=== PATIENT | female | born 1965 | race Caucasian/White ===

== ENCOUNTER 2020-09-10 08:46 | Outpatient (REF) | payer OTHER, SELFPAY ==
--- NOTE | 2020-09-10 08:48 | MR_ITS ---
EXAMINATION: MR LUMBAR SPINE WITHOUT CONTRAST CLINICAL INFORMATION: Radiculopathy. COMPARISON: Lumbar spine radiographs from 03/09/2017. CT chest from 08/27/2011. TECHNIQUE: MRI of the lumbar spine was obtained using routine sequences without contrast. FINDINGS: Otherwise, normal anatomic alignment. Mild right convex curvature of the lumbar spine. Mild degenerative grade 1 anterolisthesis of L3 on L4. Changes of prior right-sided L4-L5 hemilaminectomy. Advanced degenerative disc disease at L5-S1. Moderate degenerative disc disease at L3-L4. Mild degenerative disc disease at all additional lumbar levels. Associated mixed Modic discogenic endplate changes including mild Modic type I discogenic edema from L2-L5. Mild marrow edema within the posterior elements of L3 and L4 suggestive of degenerative stress reaction. No additional suspicious marrow edema. The vertebral body heights are largely maintained. The conus medullaris terminates at the level of L1. The distal spinal cord is normal in appearance. Postsurgical soft tissue changes of the lower back with moderate subcutaneous edema from L2-L5. No discrete fluid collection. No significant abnormalities of the paraspinal musculature. There is a 1.7 cm nodule associated with the left adrenal gland. There is a 0.8 cm T2 hyperintense cyst in the left kidney. Otherwise, limited evaluation of the intra-abdominal structures without significant abnormalities. The abdominal aorta is of normal contour and caliber. AXIAL SPINAL LEVELS: T12-L1: Shallow diffuse disc bulge. There is mild bilateral facet joint arthropathy. There is no neural foraminal stenosis. There is no spinal canal stenosis. L1-L2: Shallow diffuse disc bulge. There is mild to moderate bilateral facet joint arthropathy. There is no neural foraminal stenosis. There is no spinal canal stenosis. L2-L3: Shallow diffuse disc bulge with superimposed mild right foraminal protrusion. There is moderate bilateral facet joint arthropathy. There is mild right and no left neural foraminal stenosis. There is no spinal canal stenosis. L3-L4: Moderate diffuse disc bulge exacerbated by uncovering from anterolisthesis. There is severe bilateral facet joint arthropathy. There is severe left and moderate right neural foraminal stenosis. There is moderate to severe spinal canal stenosis. L4-L5: Moderate diffuse disc bulge with posterior osseous ridging. There is moderate bilateral facet joint arthropathy. Changes of right-sided hemilaminectomy. There is moderate to severe bilateral neural foraminal stenosis. There is stenosis of the subarticular zones with no overt spinal canal stenosis centrally. L5-S1: Mild diffuse disc bulge eccentric to the right. There is moderate bilateral facet joint arthropathy. There is moderate to severe right and moderate left neural foraminal stenosis. There is no spinal canal stenosis. MR/MR lumbar spine wo con IMPRESSION: Moderate multilevel degenerative spondyloarthropathy of the cervical spine as described in detail above. Changes of right L4-L5 hemilaminectomy. Most notably, there is moderate to severe spinal canal stenosis at L3-L4. Stenosis of the subarticular zones at L4-L5. Moderate to severe neural foraminal stenoses from L3-S1.
== END 2020-09-10 08:47 | disposition home or self-care (01) ==
LOC: HO.MRI 08:46
PROVIDERS: PCP Internal Medicine; Visit Provider Physician Assistant
DX: M51.16 Intervertebral disc disorders with radiculopathy, lumbar region (principal)
CPT/HCPCS: 72148

== ENCOUNTER 2022-07-02 15:20 | Outpatient (REF) | payer OTHER, SELFPAY ==
[2022-07-02 15:43] LABS: Binax Internal Control QC Valid; Binax Now Covid-19 Ag Negative (Negative)
== END 2022-07-02 15:21 | disposition home or self-care (01) ==
LOC: HO.HMGCLDS 15:20
PROVIDERS: PCP Internal Medicine; Visit Provider Emergency Medicine
DX: Z20.822 Contact with and (suspected) exposure to COVID-19 (principal); J06.9 Acute upper respiratory infection, unspecified
CPT/HCPCS: 87811; C9803

== ENCOUNTER 2022-07-03 16:26 | Outpatient (REF) | payer OTHER, SELFPAY ==
--- NOTE | ~2022-07-03 | XR_ITS ---
EXAMINATION: XR CHEST CLINICAL INFORMATION: Cough COMPARISON: None TECHNIQUE: 2 views of the chest were obtained. FINDINGS: No significant abnormality is noted involving the heart, lungs, mediastinum, bony thorax or soft tissues. XR/XR chest 2V IMPRESSION: Unremarkable chest examination.
[2022-07-03 18:40] LABS: Influenza A PCR NEGATIVE (Negative); Influenza B PCR NEGATIVE (Negative); Resp Syncy Virus RNA Qual PCR NEGATIVE (Negative); SARS COV2 PCR INHOUSE NEGATIVE (Negative)
== END 2022-07-03 16:27 | disposition home or self-care (01) ==
LOC: HO.HMGCX 16:26
PROVIDERS: PCP Internal Medicine; Visit Provider Physician Assistant Medical
DX: R05.9 Cough, unspecified (principal); Z20.822 Contact with and (suspected) exposure to COVID-19
CPT/HCPCS: 0241U; 71046

== ENCOUNTER 2022-07-03 17:53 | Emergency (ER) | payer OTHER, SELFPAY ==
--- NOTE | ~2022-07-03 | XR_ITS ---
EXAMINATION: XR CHEST CLINICAL INFORMATION: Short of breath. Cough. COMPARISON: 07/03/2022 TECHNIQUE: 2 views of the chest were obtained. FINDINGS: The lungs are well expanded. There is no focal consolidation, edema, or effusion. No pneumothorax. The cardiomediastinal silhouette is within normal limits. No acute osseous abnormality. XR/XR chest 2V IMPRESSION: Clear lungs.
[2022-07-03 19:13] VITALS: BP 166/89; PULSE 85; RESP 22; TEMP 36.6; O2SAT 95; BMI 32.0
[2022-07-03 19:51] LABS: COVID-19 Test Negative (Negative)
[2022-07-03 20:38] LABS: MANUAL DIFF FLAG NO
[2022-07-03 20:42] LABS: Basophils Absolute Auto 0.1 X10*3/uL (0.0-0.2); Basophils Percent Auto 0.5 % (0-2); Eosinophils Absolute Auto 0.1 X10*3/uL (0.0-0.4); Eosinophils Percent Auto 0.7 % (0-4); Hematocrit 49.8 % (37.0-47.0); Hemoglobin 16.9 g/dl (12.0-16.0); Imm Gran Abs Auto 0.13 X10*3/uL (0.00-0.03); Imm Gran Pct Auto 1.1 % (0.0-0.4); Lymphocytes Percent Auto 32.4 % (20-40); Mean Corpuscular HGB Conc 33.9 g/dl (31.0-35.0); Mean Corpuscular Hemoglobin 32.7 pg (27.0-33.0); Mean Corpuscular Volume 96.3 fL (80.0-98.0); Mean Platelet Volume 8.9 fL (9.4-12.3); Monocytes Percent Auto 7.7 % (2-11); Neutrophils Absolute Auto 7.1 x10*3/uL (2.0-8.3); Neutrophils Percent Auto 57.6 % (45-73); Platelet Count 366 X10*3/uL (160-400); Red Blood Count 5.17 X10*6/uL (4.20-5.50); Red Cell Distribution Width 13.9 % (11.0-16.0); White Blood Count 12.3 X10*3/uL (4.8-10.8)
[2022-07-03 20:57] LABS: Alanine Aminotransferase 10 U/L (0-31); Albumin Level 4.1 g/dL (3.5-5.0); Alkaline Phosphatase 110 U/L (39-117); Anion Gap 17 (12-20); Aspartate Amino Transferase 12 U/L (5-31); Bilirubin Total 0.7 mg/dL (0.0-1.0); Blood Urea Nitrogen 11 mg/dL (9-16); Calcium 9.8 mg/dL (8.4-10.2); Carbon Dioxide 28 mmol/L (22-29); Chloride 104 mmol/L (96-108); Creatinine Clr Calc Pharmacy 84.2; Estimated Glomerular Filt Rate > 60; Glucose Random 142 mg/dL (60-115); Potassium 4.5 mmol/L (3.3-5.1); Sodium 144 mmol/L (135-145); Total Protein 7.6 g/dL (6.5-8.0)
[2022-07-03 21:02] LABS: Troponin-I High Sensitivity 5.3 ng/L (<3.5-17.0)
--- NOTE | 2022-07-03 21:31 | ED_ITS ---
HPI - URI/Sore Throat General Chief Complaint: Upper Respiratory Symptoms Stated Complaint: not feeling well sent from doctors Time Seen by Provider: 07/03/22 21:30 Source: patient Mode of arrival: ambulatory Limitations: no limitations History of Present Illness HPI Narrative: 56-year-old female came in for evaluation of upper respiratory symptoms. Patient with history of COPD and in the process of quitting smoking came in for increases shortness of breath with dry coughing, sneezing, generalized body ache, subjective fever. Patient was seen and evaluated at an urgent care last week because of no improvement of her symptoms patient return to the urgent care who referred her to the emergency department for further evaluation. While the patient in emergency room stable vital signs with stable O2 sat. Patient tested negative for COVID and declined any recent exposure to a sick contact, no recent travel. Related Data Home Medications Medication Instructions Recorded Confirmed albuterol sulfate 90 mcg/actuation 2 puff inhalation Q4H PRN 07/25/20 07/03/22 aerosol inhaler (ProAir HFA) Previous Rx's Medication Instructions Recorded ibuprofen 800 mg tablet 800 mg PO Q8H 30 days #90 tabs 09/12/20 albuterol sulfate 90 mcg/actuation 1 inh inhalation Q4-6H PRN 07/03/22 breath activated powder inhaler shortness of breath or wheezing #1 ea azithromycin 250 mg tablet See Rx Instructions PO .COMPLEX #6 07/03/22 (Zithromax Z-Mehrdad) tabs prednisone 20 mg tablet 20 mg PO BID #10 tabs 07/03/22 Allergies Allergy/AdvReac Type Severity Reaction Status Date / Time No Known Allergies Allergy Verified 07/03/22 16:09 [No Known Allergies*] Review of Systems Review of Systems: All other systems are reviewed and are negative Constitutional: Reports as per HPI and Reports no additional constitutional complaints Eyes: Reports as per HPI and Reports no additional eye complaints Reports system reviewed and no additional complaints, except as documented Cardiovascular: Reports as per HPI and Reports no additional cardiovascular complaints Respiratory: Reports as per HPI and Reports no additional respiratory complaints Gastrointestinal: Reports as per HPI and Reports no additional gastrointestinal complaints Genitourinary: Reports no additional female genitourinary complaints Musculoskeletal: Reports no additional musculoskeletal complaints Skin/Breast: Reports system reviewed and no additional complaints, except as docu Psychiatric: Reports no additional psychiatric complaints Endocrine: Reports no additional endocrine complaints Hematologic/Lymphatic: Reports no additional hematologic/lymphatic complaints Allergic/Immunologic: Reports no additional allergic/immunologic complaints Reports system reviewed and no additional complaints, except as documented and Reports Abnormal speech present [facility] Past Medical History Surgical History History of appendectomy History of back surgery Ventral hernia Family History Family History Father CVA (cerebral vascular accident) Diabetes mellitus Hypertension Mother Diabetes mellitus Hypertension CVD (cardiovascular disease) Myocardial infarction Brother Skin cancer Social History Social History Patient Tobacco Use Status: Current everyday Tobacco user Advance Directives: No Advance Directives Information Provided: No Physical Exam Vital Signs: Vital Signs: Last Vital Signs Temp 97.8 F 07/03/22 19:13 Pulse 85 07/03/22 19:13 Resp 22 H 07/03/22 19:13 BP 166/89 H 07/03/22 19:13 Pulse Ox 95 07/03/22 19:13 O2 Del Method 07/03/22 19:13 BMI result Body Mass Index 32.0 Vital signs have been reviewed as appeared to be correct. Blood pressure normal. Heart rate normal. Respiration rate normal. Temperature normal. Oxygen saturation normal. Appearance: Alert. Oriented X3. No acute distress. Head: Normal external exam. Normocephalic. Atraumatic. No Pradhan signs noted. No raccoon eyes noted Eyes: PERRLA. EOMI. Conjunctiva and sclera normal. Eyelids normal. ENT: TM's Normal. Pharynx normal. Uvula midline. Moist mucous membranes. No trismus noted. No drooling noted. No muffled voice noted. Neck: Normal inspection. Neck supple. FROM. No adenopathy. Thyroid Normal. No meningeal signs. No neck mass noted. CVS: Normal heart rate and rhythm. Heart sound normal. No murmurs noted. Pulses normal throughout. Respiratory: No respiratory distress. Painless inspiration. Breath sounds normal. Diffuse mild expiratory wheezing with prolonged expiration. Chest nontender. No accessory muscle usage noted or decreased air movement noted. Abdomen: Soft and nontender. Bowel sounds normal in all 4 quadrants. No distention noted. No organomegaly noted. No visible injury noted. Back: No CVA tenderness. Full range of motion noted. Skin: Skin warm and dry. Normal skin color. Normal skin turgor. No ra shes/lesions/lacerations noted. Extremities: No lower extremity edema. Extremities exhibit normal range of motion. Extremities nontender. Neuro: Oriented X 3. Cranial nerve exam: II-XII are grossly intact No motor deficit. No sensory deficit. Reflexes normal. Course Course Course Narrative: 56-year-old female with long history of smoking and COPD patient had viral symptoms 5 days patient was evaluated at an urgent care who sent her here today, patient is not hypoxic, mild expiratory wheezing, stable labs and vital signs, chest x-ray is unremarkable for acute infection and patient tested negative for COVID. Will start the patient on Z-Mehrdad/prednisone/bronchodilator. Patient was instructed to follow up with [facility] as an outpatient. MDM - URI/Sore Throat Lab Data Attestation: I reviewed the patient's lab results. Result diagrams: 07/03/22 20:34 07/03/22 20:34 Labs: Lab Results 07/03/22 07/03/22 07/03/22 Range/Units 19:21 20:34 20:34 WBC 12.3 H (4.8-10.8) X10*3/uL RBC 5.17 (4.20-5.50) X10*6/uL Hgb 16.9 H (12.0-16.0) g/dl Hct 49.8 H (37.0-47.0) % MCV 96.3 (80.0-98.0) fL MCH 32.7 (27.0-33.0) pg MCHC 33.9 (31.0-35.0) g/dl RDW 13.9 (11.0-16.0) % Plt Count 366 (160-400) X10*3/uL MPV 8.9 L (9.4-12.3) fL Immature Gran % (Auto) 1.1 H (0.0-0.4) % Neut % (Auto) 57.6 (45-73) % Lymph % (Auto) 32.4 (20-40) % [place] % (Auto) 7.7 (2-11) % Eos % (Auto) 0.7 (0-4) % Baso % (Auto) 0.5 (0-2) % Lymph # (Auto) 4.0 (1.2-4.9) X10*3/uL [place] # (Auto) 1.0 (0.1-1.2) X10*3/uL Eos # (Auto) 0.1 (0.0-0.4) X10*3/uL Baso # (Auto) 0.1 (0.0-0.2) X10*3/uL Abs Immat Gran (auto) 0.13 H (0.00-0.03) X10*3/uL Absolute Neuts (auto) 7.1 (2.0-8.3) x10*3/uL Absolute Nucleated RBC 0.000 (0.0-0.012) X10*3/uL Nucleated RBC % (auto) 0.0 (0.0-0.2) /100WBC Sodium 144 (135-145) mmol/L Potassium 4.5 (3.3-5.1) mmol/L Chloride 104 (96-108) mmol/L Carbon Dioxide 28 (22-29) mmol/L Anion Gap 17 (12-20) BUN 11 (9-16) mg/dL Creatinine 0.71 (0.5-1.4) mg/dL Estim Creat Clear Calc 84.2 Estimated GFR > 60 Random Glucose 142 H (60-115) mg/dL Calcium 9.8 (8.4-10.2) mg/dL Total Bilirubin 0.7 (0.0-1.0) mg/dL AST 12 (5-31) U/L ALT 10 (0-31) U/L Alkaline Phosphatase 110 (39-117) U/L Troponin I High Sens (<3.5-17.0) ng/L Total Protein 7.6 (6.5-8.0) g/dL Albumin 4.1 (3.5-5.0) g/dL COVID-19 (SHERYL) Negative (Negative) COVID-19 Clin Com See Note 07/03/22 Range/Units 20:34 WBC (4.8-10.8) X10*3/uL RBC (4.20-5.50) X10*6/uL Hgb (12.0-16.0) g/dl Hct (37.0-47.0) % MCV (80.0-98.0) fL MCH (27.0-33.0) pg MCHC (31.0-35.0) g/dl RDW (11.0-16.0) % Plt Count (160-400) X10*3/uL MPV (9.4-12.3) fL Immature Gran % (Auto) (0.0-0.4) % Neut % (Auto) (45-73) % Lymph % (Auto) (20-40) % [place] % (Auto) (2-11) % Eos % (Auto) (0-4) % Baso % (Auto) (0-2) % Lymph # (Auto) (1.2-4.9) X10*3/uL [place] # (Auto) (0.1-1.2) X10*3/uL Eos # (Auto) (0.0-0.4) X10*3/uL Baso # (Auto) (0.0-0.2) X10*3/uL Abs Immat Gran (auto) (0.00-0.03) X10*3/uL Absolute Neuts (auto) (2.0-8.3) x10*3/uL Absolute Nucleated RBC (0.0-0.012) X10*3/uL Nucleated RBC % (auto) (0.0-0.2) /100WBC Sodium (135-145) mmol/L Potassium (3.3-5.1) mmol/L Chloride (96-108) mmol/L Carbon Dioxide (22-29) mmol/L Anion Gap (12-20) BUN (9-16) mg/dL Creatinine (0.5-1.4) mg/dL Estim Creat Clear Calc Estimated GFR Random Glucose (60-115) mg/dL Calcium (8.4-10.2) mg/dL Total Bilirubin (0.0-1.0) mg/dL AST (5-31) U/L ALT (0-31) U/L Alkaline Phosphatase (39-117) U/L Troponin I High Sens 5.3 (<3.5-17.0) ng/L Total Protein (6.5-8.0) g/dL Albumin (3.5-5.0) g/dL COVID-19 (SHERYL) (Negative) COVID-19 Clin Com Imaging Data Chest x-ray: Attestation: I personally reviewed and interpreted this imaging study as follows: Radiologist's impression: No intrathoracic pathology. Discharge Plan Discharge Clinical Impression: Bronchitis Patient Disposition: Home, Self-Care Instructions: Acute Bronchitis (ED) Prescriptions: New albuterol sulfate 90 mcg/actuation aerosol powdr breath activated 1 inh inhalation Q4-6H PRN (Reason: shortness of breath or wheezing) Qty: 1 0RF azithromycin [Zithromax Z-Mehrdad] 250 mg tablet See Rx Instructions .ROUTE .COMPLEX Qty: 6 0RF Rx Instructions: For 250 mg dose pack: take 500 mg today (day 1), then 250 mg for 4 days (days 2-5) prednisone 20 mg tablet 20 mg PO BID Qty: 10 0RF No Action ibuprofen 800 mg tablet 800 mg PO Q8H 30 Days Qty: 90 1RF albuterol sulfate [ProAir HFA] 90 mcg/actuation HFA aerosol inhaler 2 puff inhalation Q4H PRN Referrals: Po,Joycelyn Del Rio MD [Primary Care Provider] - Raffy Shore MD [Physician] - Stand Alone Forms: Work/School Release
[2022-07-03] MEDS: Azithromycin 500 MG TABLET PO (22:24)
[2022-07-03] MEDS: predniSONE 20 MG TABLET 40 MG PO (22:24)
== END 2022-07-03 22:29 | disposition home or self-care (01) ==
PROVIDERS: Emergency Provider Emergency Medicine; PCP Internal Medicine
DX: J40 Bronchitis, not specified as acute or chronic (principal); R06.02 Shortness of breath; Z20.822 Contact with and (suspected) exposure to COVID-19; Z79.899 Other long term (current) drug therapy; Z87.891 Personal history of nicotine dependence
CPT/HCPCS: 36415; 71046; 80053; 84484; 85025; 87635; 99282; 99283

== ENCOUNTER 2023-04-20 07:28 | Outpatient (REF) | payer OTHER, SELFPAY ==
--- NOTE | ~2023-04-20 | XR_ITS ---
EXAMINATION: XR HIP, LEFT CLINICAL INFORMATION: Left hip pain COMPARISON: None available. TECHNIQUE: Two views of the left hip. FINDINGS: Mild superior joint space narrowing. No fracture. No suspicious bone lesion. Mild enthesopathy at the greater trochanter. XR/XR hip LT min 2V IMPRESSION: Mild left hip osteoarthritis.
== END 2023-04-20 07:29 | disposition home or self-care (01) ==
LOC: HO.XRAY 07:28
PROVIDERS: PCP Internal Medicine; Visit Provider Internal Medicine
DX: M25.552 Pain in left hip (principal); E78.00 Pure hypercholesterolemia, unspecified; I10 Essential (primary) hypertension; E55.9 Vitamin D deficiency, unspecified
CPT/HCPCS: 36415; 73502; 80053; 80061; 82306; 82607; 82746; 84439; 84443; 85025

== ENCOUNTER 2023-05-29 07:24 | Outpatient (REF) | payer OTHER, SELFPAY | END 2023-05-29 07:25 | disposition home or self-care (01) | LOC: HO.MAMMO 07:24 | PROVIDERS: PCP Internal Medicine; Visit Provider Internal Medicine | DX: Z12.31 Encounter for screening mammogram for malignant neoplasm of breast (principal) | CPT/HCPCS: 77063; 77067 ==

== ENCOUNTER → 2023-05-29 07:30 | Outpatient (BNV) | payer OTHER, SELFPAY | PROVIDERS: PCP Internal Medicine; Visit Provider Radiology Diagnostic Radiology | DX: Z12.31 Encounter for screening mammogram for malignant neoplasm of breast (principal) | CPT/HCPCS: 77063; 77067 ==

== ENCOUNTER 2023-07-24 14:14 | Outpatient (AMB) | payer OTHER, SELFPAY ==
[2023-07-24 14:39] VITALS: BP 148/88; PULSE 85; O2SAT 97; BMI 35.7
--- NOTE | 2023-07-24 14:39 | MHC.PC.OV ---
Vital Signs 07/24/23 14:39 Height 5 ft 2 in Weight 195 lb BMI 35.7 BP 148/88 H Blood Pressure Location Lt brachial Position Sitting Pulse 85 Pulse Source Pulse Oximeter Pulse Oximetry (%) 97 Oxygen Delivery Method Room Air Intake Visit Reasons: hypersomnia, HTN Supervisor Pigment Making: Not Required per policy Accompanied by: Self / Same As Patient Allergies No Known Allergies [No Known Allergies*] Allergy (Verified 07/24/23 14:39) Medication List - Last Reconciled 07/24/23 by Joycelyn Carney MD albuterol sulfate 90 mcg/actuation 1 inh inhalation Q4-6H PRN albuterol sulfate 90 mcg/actuation (ProAir HFA) 2 puffs inhalation Q4H PRN aspirin 325 mg PO BID blood pressure monitor (Blood Pressure Kit) As directed bupropion HCl 200 mg PO BID ibuprofen 800 mg PO Q8H 30 days lisinopril 5 mg PO DAILY Tobacco use date assessed: 01/07/23 Dental Screening Dental Screen Date: 07/24/23 Did you have a dental visit in the last 12 months?: No Did you have a dental problem in the last 6 months where you did not have access to dental care?: No Was dental information given to patient?: Patient has dentist HPI hypersomnia, HTN HPI Details 57-year-old obese female smoker with COPD hypertension hypercholesterolemia GERD generalized anxiety disorder last seen in March 2023. Mammograms up-to-date. Patient has complained of left hip pain x-ray was done showing mild left hip osteoarthritis. [facility] Surgical History History of back surgery Ventral hernia History of appendectomy Family History Father CVA (cerebral vascular accident) Diabetes mellitus Hypertension Mother Diabetes mellitus Hypertension CVD (cardiovascular disease) Myocardial infarction Brother No problems noted. Sister CVD (cardiovascular disease) Skin cancer Social History Housing: House Alcohol intake: former Patient Tobacco Use Status: Current everyday Tobacco user Tobacco use type: Cigarette Cigarettes Per Day: 6 e-Cigarette/Vaping Use: Never Used Second Hand Smoke Exposure: No Current occupational status: employed Cognitive needs: No Hearing needs: No Vision needs: Yes Questionnaire PHQ-9 Over the last 2 weeks, how often have you been bothered by any of the following problems? 1. Little interest or pleasure in doing things: nearly every day 2. Feeling down, depressed, or hopeless: nearly every day 3. Trouble falling or staying asleep, or sleeping too much: more than half the days 4. Feeling tired or having little energy: nearly every day 5. Poor appetite or overeating: not at all 6. Feeling bad about yourself - or that you are a failure or have let yourself or your family down: nearly every day 7. Trouble concentrating on things, such as reading the newspaper or watching television: nearly every day 8. Moving or speaking so slowly that other people could have noticed. Or the opposite - being so fidgety or restless that you have been moving around a lot more than usual: not at all 9. Thoughts that you would be better off or of hurting yourself in some way: not at all Total score: 17 Depression Screening Interpretation: Positive Depression Screening Follow-up: In treatment Depression Screening Done: Yes 98332 - PHQ-9 Billing: Yes Source: Developed by Drs. Tab Hodgson, Nighat Hernandez, Rich Camp and colleagues, with an educational jose from [employer]. Thrive Questionnaire Date Thrive assessed: 01/07/23 AUDIT C Alcohol Use Questionnaire (AUDIT-C) 1. How often do you have a drink containing alcohol?: Never 3. How often do you have six or more drinks on one occasion?: Never Total Score: 0 Score Reviewed/Action Taken: No MARS-7 AMB Questionnaire MARS-7 Date MARS - 7 assessed: 04/15/23 Source: Developed by Drs. Tab Hodgson, Rich Carmona and colleagues, with an educational jose from [employer]. Physical exam (Primary Care) Vital Signs: Last Vital Signs Pulse 85 07/24/23 14:39 BP 148/88 H 07/24/23 14:39 Pulse Ox 97 07/24/23 14:39 Oxygen Delivery Method Room Air 07/24/23 14:39 BMI result Body Mass Index 35.7 Tobacco/Smoking Status: Tobacco use Status Tobacco use date assessed 01/07/23 07/24/23 14:40 Patient Tobacco Use Status Current everyday Tobacco 07/24/23 14:40 Tobacco use type Cigarette 07/24/23 14:40 e-Cigarette/Vaping Use Never Used 07/24/23 14:40 PHQ-9: PHQ-9 Score PHQ-9: Total score 17 07/24/23 15:08 Depression Screening Interpretation: Positive Depression Screening Follow-up: In treatment Thrive Assessment: Date of Thrive Assessment Date Thrive assessed 01/07/23 07/24/23 14:40 Const General: alert; No acute distress Eyes Conjunctivae: conjunctivae normal Resp Auscultation: clear to auscultation bilaterally Cardio Rate: regular rate Rhythm: regular rhythm GI Inspection: Yes normal to inspection Extrem General: Yes normal to inspection and No edema Results AMB Hemoglobin A1c AMB Hemoglobin A1c 6.8 % Last Edit by LIU Tafoya on 07/24/23 15:20 Assessment and Plan Assessment & Plan (1) Elevated blood sugar: Code(s): R73.9 - Hyperglycemia, unspecified Plan: Decrease the amount of carbohydrate intake, pasta, bread, rice and potatoes are all sugar and that is aside from all the sweet stuff, remember that fruits are good but they are Sweet also. (2) Osteoarthritis of left hip: Code(s): M16.12 - Unilateral primary osteoarthritis, left hip Plan: X-ray requested showing osteoarthritis (3) Tobacco abuse: Code(s): Z72.0 - Tobacco use Plan: Strongly advised to stop ! (4) COPD (chronic obstructive pulmonary disease): Code(s): J44.9 - Chronic obstructive pulmonary disease, unspecified Plan: Patient is strongly advised to stop smoking. Continue with the albuterol inhaler as needed (5) Generalized anxiety disorder: Comment: zoom Q 2 week ADCARE Code(s): F41.1 - Generalized anxiety disorder Plan: Continue with therapy and counseling (6) Hypercholesterolemia: Code(s): E78.00 - Pure hypercholesterolemia, unspecified Plan: Avoid fried foods, chicken skin, eggs, butter margarine, pastries and meat. Be it pork or beef they have a lot of cholesterol LDL goal of less than 130 and triglyceride of less than 150 (7) Hypertension: Code(s): I10 - Essential (primary) hypertension Plan: Continue with blood pressure medication. Decrease salt intake and exercise presently on no medication (8) GERD (gastroesophageal reflux disease): Code(s): K21.9 - Gastro-esophageal reflux disease without esophagitis Plan: Avoid the foods that causes that usually spicy foods, tomato products, juices, coffee, soda and foods that your sensitive to. After eating do not lie down, allow 3-4 hours before in lie down. And keep the head of bed above 30 degrees to avoid the acid from going up. (9) Type 2 diabetes mellitus with hyperglycemia: Code(s): E11.65 - Type 2 diabetes mellitus with hyperglycemia Orders: Orders AMB Hemoglobin A1c Today Z13.9 - Encounter for screening, unspecified Lipid Panel 3 Months E78.00 - Pure hypercholesterolemia, unspecified Comprehensive Met. Panel 3 Months E78.00 - Pure hypercholesterolemia, unspecified Hemoglobin A1c 3 Months E78.00 - Pure hypercholesterolemia, unspecified Medications: New lisinopril 5 mg PO DAILY 30 tabs 3RF I10 - Essential (primary) hypertension budesonide-formoterol 160-4.5 mcg/actuation (Symbicort) 2 puffs inhalation BID 10.2 grams 3RF J44.9 - Chronic obstructive pulmonary disease, unspecified metformin 500 mg PO BIDWMEAL 60 tabs 3RF E11.65 - Type 2 diabetes mellitus with hyperglycemia tramadol 50 mg PO DAILY 30 tabs 0RF M16.12 - Unilateral primary osteoarthritis, left hip Changed From bupropion HCl (Wellbutrin SR) 150 mg PO BID 60 tabs 2RF F41.1 - Generalized anxiety disorder To bupropion HCl 200 mg PO BID 60 tabs 3RF F41.1 - Generalized anxiety disorder Refilled albuterol sulfate 90 mcg/actuation 1 inh inhalation Q4-6H PRN 1 ea 0RF shortness of breath or wheezing F41.1 - Generalized anxiety disorder Discontinued ibuprofen Discontinued Reason: Ancillary Entered New Order 800 mg PO Q8H 90 tabs 1RF 30 days M51.16 - Intervertebral disc disorders with radiculopathy, lumbar region Coding Level of Care Code Est Pt Level 4 (53722) Diagnoses Elevated blood sugar R73.9 Osteoarthritis of left hip M16.12 Tobacco abuse Z72.0 COPD (chronic obstructive pulmonary disease) J44.9 Generalized anxiety disorder F41.1 Hypercholesterolemia E78.00 Hypertension I10 GERD (gastroesophageal reflux disease) K21.9 Type 2 diabetes mellitus with hyperglycemia E11.65
== END 2023-07-24 15:35 | disposition home or self-care (01) ==
PROVIDERS: PCP Internal Medicine; Visit Provider Internal Medicine
DX: E11.65 Type 2 diabetes mellitus with hyperglycemia (principal); J44.9 Chronic obstructive pulmonary disease, unspecified; F41.1 Generalized anxiety disorder; M16.12 Unilateral primary osteoarthritis, left hip; Z72.0 Tobacco use; E78.00 Pure hypercholesterolemia, unspecified; I10 Essential (primary) hypertension; K21.9 Gastro-esophageal reflux disease without esophagitis
CPT/HCPCS: 83036; 99214

== ENCOUNTER 2023-10-30 13:11 | Outpatient (AMB) | payer OTHER, SELFPAY ==
[2023-10-30 14:14] VITALS: BP 130/60; PULSE 90; O2SAT 97; BMI 34.7
--- NOTE | 2023-10-30 14:14 | AM.OFFWIN_ITS ---
<Statement entered by Ana Marte NP - 11/05/23 17:41> OPEN IN ERROR Intake Vital Signs 10/30/23 14:14 Height 5 ft 2 in Weight 190 lb BMI 34.7 BP 130/60 Blood Pressure Location Lt brachial Position Sitting Pulse 90 Pulse Source Pulse Oximeter Pulse Oximetry (%) 97 Oxygen Delivery Method Room Air Intake Visit Reasons: EP Cough, nausea, exhaustion [id number] Intake Note: pt is here today for cough nausea exhaustion started 2 weeks ago Patient Tobacco Use Status: Current everyday Tobacco user Allergies No Known Allergies [No Known Allergies*] Allergy (Verified 10/30/23 14:15) Medication List - Last Reconciled 10/30/23 by Ana Marte NP albuterol sulfate 90 mcg/actuation (ProAir HFA) 2 puffs inhalation Q4H PRN albuterol sulfate 90 mcg/actuation 1 inh inhalation Q4-6H PRN aspirin 325 mg PO BID benzonatate 100 mg PO TID blood pressure monitor (Blood Pressure Kit) As directed budesonide-formoterol 160-4.5 mcg/actuation (Symbicort) 2 puffs inhalation BID bupropion HCl 200 mg PO BID lisinopril 5 mg PO DAILY metformin 500 mg PO BIDWMEAL ondansetron 8 mg PO Q8-12H PRN prednisone 50 mg PO DAILY 5 days tramadol 50 mg PO DAILY Do you need a note to return to daycare/school/sports/work: No PFSH Surgical History History of back surgery Ventral hernia History of appendectomy Family History Father CVA (cerebral vascular accident) Diabetes mellitus Hypertension Mother Diabetes mellitus Hypertension CVD (cardiovascular disease) Myocardial infarction Brother No problems noted. Sister CVD (cardiovascular disease) Skin cancer Social History Housing: House Alcohol intake: former Patient Tobacco Use Status: Current everyday Tobacco user Tobacco use type: Cigarette Cigarettes Per Day: 6 e-Cigarette/Vaping Use: Never Used Second Hand Smoke Exposure: No Current occupational status: employed Cognitive needs: No Hearing needs: No Vision needs: Yes Physical Exam Vital Signs: Last Vital Signs Pulse 90 10/30/23 14:14 BP 130/60 10/30/23 14:14 Pulse Ox 97 10/30/23 14:14 Oxygen Delivery Method Room Air 10/30/23 14:14 BMI result Body Mass Index 34.7 Assessment & Plan Assessment & Plan (1) Gastritis: Code(s): K29.70 - Gastritis, unspecified, without bleeding Qualifiers: Chronicity: acute Gastritis bleeding: without bleeding Gastritis type: other gastritis Qualified Code(s): K29.00 - Acute gastritis without bleeding (2) Cough in adult: Code(s): R05.9 - Cough, unspecified (3) Wheezing: Code(s): R06.2 - Wheezing Medications: New benzonatate 100 mg PO TID 30 caps 0RF prednisone 50 mg PO DAILY 5 days 5 tabs 0RF R06.2 - Wheezing ondansetron 8 mg PO Q8-12H PRN 30 tabs 0RF nausea and vomiting K29.00 - Acute gastritis without bleeding Coding Level of Care Code Left Without Being Seen Diagnoses Other acute gastritis without hemorrhage K29.00 Chronicity: acute Gastritis bleeding: without bleeding Gastritis type: other gastritis Cough in adult R05.9 Wheezing R06.2 Comment DUPLICATE CHARTS OPENED
--- NOTE | 2023-10-30 14:23 | AM.OFFWIN_ITS ---
Intake Vital Signs 10/30/23 14:14 Height 5 ft 2 in Weight 190 lb BMI 34.7 BP 130/60 Blood Pressure Location Lt brachial Position Sitting Pulse 90 Pulse Source Pulse Oximeter Pulse Oximetry (%) 97 Oxygen Delivery Method Room Air Intake Visit Reasons: EP Cough, nausea, exhaustion [id number] Patient Tobacco Use Status: Current everyday Tobacco user Allergies No Known Allergies [No Known Allergies*] Allergy (Verified 10/30/23 14:15) Medication List - Last Reconciled 10/30/23 by Ana Marte, DAVID albuterol sulfate 90 mcg/actuation (ProAir HFA) 2 puffs inhalation Q4H PRN albuterol sulfate 90 mcg/actuation 1 inh inhalation Q4-6H PRN aspirin 325 mg PO BID benzonatate 100 mg PO TID blood pressure monitor (Blood Pressure Kit) As directed budesonide-formoterol 160-4.5 mcg/actuation (Symbicort) 2 puffs inhalation BID bupropion HCl 200 mg PO BID lisinopril 5 mg PO DAILY metformin 500 mg PO BIDWMEAL ondansetron 8 mg PO Q8-12H PRN prednisone 50 mg PO DAILY 5 days tramadol 50 mg PO DAILY HPI HPI Comments History of Present Illness Details 58 y/o female who presents to walk in [facility] with c/o dry chronic persitent cough, nausea, vomiting, diarrhea, poor appetite and dizziness. Reports that symptoms started 2 months ago, they have been on/off. H/o T2DM and she started taking Metformin in August. She has noticed that her symptoms started the same time she begun taking Metformin. She does not check her BG at home, needs device. [facility] Surgical History History of back surgery Ventral hernia History of appendectomy Family History Father CVA (cerebral vascular accident) Diabetes mellitus Hypertension Mother Diabetes mellitus Hypertension CVD (cardiovascular disease) Myocardial infarction Brother No problems noted. Sister CVD (cardiovascular disease) Skin cancer Social History Housing: House Alcohol intake: former Patient Tobacco Use Status: Current everyday Tobacco user Tobacco use type: Cigarette Cigarettes Per Day: 6 e-Cigarette/Vaping Use: Never Used Second Hand Smoke Exposure: No Current occupational status: employed Cognitive needs: No Hearing needs: No Vision needs: Yes Review of Systems Const All systems reviewed & are unremarkable except as noted in HPI and below Physical Exam Vital Signs: Last Vital Signs Pulse 90 10/30/23 14:14 BP 130/60 10/30/23 14:14 Pulse Ox 97 10/30/23 14:14 Oxygen Delivery Method Room Air 10/30/23 14:14 BMI result Body Mass Index 34.7 Const General: no acute distress; No comfortable HEENT Head: Yes normocephalic Ears: external ears normal and TM's normal bilaterally General nose exam: Nasal discharge present Face and sinus: Yes sinus tenderness Mouth: Normal oral and palatal mucosa present Throat: Yes tonsils normal, Yes uvula midline and Yes postnasal drainage Resp Effort & Inspection: normal respiratory effort and Actively coughing Auscultation: no crackles, no rales, no rhonchi and wheezes Cardio Rate: regular rate Rhythm: regular rhythm Assessment & Plan Assessment & Plan (1) Gastritis: Code(s): K29.70 - Gastritis, unspecified, without bleeding Qualifiers: Gastritis type: other gastritis Chronicity: acute Gastritis bleeding: without bleeding Qualified Code(s): K29.00 - Acute gastritis without bleeding (2) Cough in adult: Code(s): R05.9 - Cough, unspecified (3) Wheezing: Code(s): R06.2 - Wheezing Plan - Informed Pt that Metformin causes GI upset. - Advised to take it once a day at bedtime with food. - Advised to f/u with PCP for medication change if GI symptoms continue. - Rest, hydrate and advance slowly from liquid to solids Medications: New benzonatate 100 mg PO TID 30 caps 0RF prednisone 50 mg PO DAILY 5 tabs 0RF 5 days R06.2 - Wheezing ondansetron 8 mg PO Q8-12H PRN 30 tabs 0RF nausea and vomiting K29.00 - Acute gastritis without bleeding Patient Instructions: - Informed Pt that Metformin causes GI upset. - Advised to take it once a day at bedtime with food. - Advised to f/u with PCP for medication change if GI symptoms continue. - Rest, hydrate and advance slowly from liquid to solids Coding Level of Care Code Est Pt Level 3 (43632) Diagnoses Other acute gastritis without hemorrhage K29.00 Gastritis type: other gastritis Chronicity: acute Gastritis bleeding: without bleeding Cough in adult R05.9 Wheezing R06.2 Time Spent (min) 15
--- NOTE | 2023-10-30 14:31 | MHC.OFFWIV ---
Intake Vital Signs 10/30/23 14:14 Height 5 ft 2 in Weight 190 lb BMI 34.7 BP 130/60 Blood Pressure Location Lt brachial Position Sitting Pulse 90 Pulse Source Pulse Oximeter Pulse Oximetry (%) 97 Oxygen Delivery Method Room Air Intake Visit Reasons: EP Cough, nausea, exhaustion [id number] Patient Tobacco Use Status: Current everyday Tobacco user Allergies No Known Allergies [No Known Allergies*] Allergy (Verified 10/30/23 14:15) Medication List - Last Reconciled 10/30/23 by Ana Marte NP albuterol sulfate 90 mcg/actuation (ProAir HFA) 2 puffs inhalation Q4H PRN albuterol sulfate 90 mcg/actuation 1 inh inhalation Q4-6H PRN aspirin 325 mg PO BID benzonatate 100 mg PO TID blood pressure monitor (Blood Pressure Kit) As directed budesonide-formoterol 160-4.5 mcg/actuation (Symbicort) 2 puffs inhalation BID bupropion HCl 200 mg PO BID lisinopril 5 mg PO DAILY metformin 500 mg PO BIDWMEAL ondansetron 8 mg PO Q8-12H PRN prednisone 50 mg PO DAILY 5 days tramadol 50 mg PO DAILY PFSH Surgical History History of back surgery Ventral hernia History of appendectomy Family History Father CVA (cerebral vascular accident) Diabetes mellitus Hypertension Mother Diabetes mellitus Hypertension CVD (cardiovascular disease) Myocardial infarction Brother No problems noted. Sister CVD (cardiovascular disease) Skin cancer Social History Housing: House Alcohol intake: former Patient Tobacco Use Status: Current everyday Tobacco user Tobacco use type: Cigarette Cigarettes Per Day: 6 e-Cigarette/Vaping Use: Never Used Second Hand Smoke Exposure: No Current occupational status: employed Cognitive needs: No Hearing needs: No Vision needs: Yes Physical Exam Vital Signs: Last Vital Signs Pulse 90 10/30/23 14:14 BP 130/60 10/30/23 14:14 Pulse Ox 97 10/30/23 14:14 Oxygen Delivery Method Room Air 10/30/23 14:14 BMI result Body Mass Index 34.7 Assessment & Plan Assessment & Plan Medications: New benzonatate 100 mg PO TID 30 caps 0RF prednisone 50 mg PO DAILY 5 tabs 0RF 5 days R06.2 - Wheezing ondansetron 8 mg PO Q8-12H PRN 30 tabs 0RF nausea and vomiting K29.00 - Acute gastritis without bleeding Coding
== END 2023-10-30 15:08 | disposition home or self-care (01) ==
PROVIDERS: PCP Internal Medicine; Visit Provider Nurse Practitioner Family
DX: K29.00 Acute gastritis without bleeding (principal); R05.9 Cough, unspecified; R06.2 Wheezing
CPT/HCPCS: 99213

== ENCOUNTER 2023-11-09 15:40 | Outpatient (AMB) | payer OTHER, SELFPAY ==
[2023-11-09 15:42] VITALS: BP 138/68; PULSE 88; TEMP 36.6; O2SAT 97; BMI 35.5
--- NOTE | 2023-11-09 15:42 | AM.OFFWIN_ITS ---
Intake Vital Signs 11/09/23 15:42 Height 5 ft 2 in Weight 194 lb 2 oz BMI 35.5 BP 138/68 Blood Pressure Location Lt brachial Position Sitting Pulse 88 Pulse Source Pulse Oximeter Temp 98 F Temp Source Oral Pulse Oximetry (%) 97 Oxygen Delivery Method Room Air Intake Visit Reasons: EP ?Upper respiratory infection/Stomach Bug Intake Note: Pt is here today for upper respiratory infection and stomach bug, an states it started a month ago Patient Tobacco Use Status: Current everyday Tobacco user Allergies No Known Allergies [No Known Allergies*] Allergy (Verified 11/09/23 16:19) Medication List - Last Reconciled 11/09/23 by Benjamin Pyle MD albuterol sulfate 90 mcg/actuation (ProAir HFA) 2 puffs inhalation Q4H PRN albuterol sulfate 90 mcg/actuation 1 inh inhalation Q4-6H PRN aspirin 325 mg PO BID benzonatate 100 mg PO TID blood pressure monitor (Blood Pressure Kit) As directed budesonide-formoterol 160-4.5 mcg/actuation (Symbicort) 2 puffs inhalation BID bupropion HCl 200 mg PO BID lisinopril 5 mg PO DAILY metformin 500 mg PO BIDWMEAL ondansetron 8 mg PO Q8-12H PRN Do you need a note to return to daycare/school/sports/work: No HPI EP ?Upper respiratory infection/Stomach Bug HPI Details 58-year-old female presents to the [facility] for a sick visit. Patient reports she has been sick for a month with cough and GI upset. She was started on antibiotics, prednisone. She completed the medication but continues to cough and feel weak and lightheaded. She is stopped the metformin thinking that was causing the GI upset. She has an upcoming appointment with her family doctor next week. Patient reports that she is still able to work. In the process of quitting smoking. [facility] Surgical History History of back surgery Ventral hernia History of appendectomy Family History Father CVA (cerebral vascular accident) Diabetes mellitus Hypertension Mother Diabetes mellitus Hypertension CVD (cardiovascular disease) Myocardial infarction Brother No problems noted. Sister CVD (cardiovascular disease) Skin cancer Social History Housing: House Alcohol intake: former Patient Tobacco Use Status: Current everyday Tobacco user Tobacco use type: Cigarette Cigarettes Per Day: 6 e-Cigarette/Vaping Use: Never Used Second Hand Smoke Exposure: No Current occupational status: employed Cognitive needs: No Hearing needs: No Vision needs: Yes Physical Exam Vital Signs: Last Vital Signs Temp 98 F 11/09/23 15:42 Pulse 88 11/09/23 15:42 BP 138/68 11/09/23 15:42 Pulse Ox 97 11/09/23 15:42 Oxygen Delivery Method Room Air 11/09/23 15:42 BMI result Body Mass Index 35.5 Const General: cooperative and healthy appearing Nutritional Appearance: well nourished Orientation/consciousness: patient oriented x3 Limitations: no limitations HEENT Head: Yes normal to inspection Eyes General: appearance normal, both eyes and all related structures Neck Neck: Yes normal visual inspection Chest Chest palpation & inspection: normal palpation of entire chest wall Resp Effort & Inspection: normal respiratory effort Neuro General: patient oriented x3 Results AMB Random Glucose (hemocue) AMB Random Glucose (hemocue) 114 mg/dL Last Edit by CHELSEA Rodriguez 11/09/23 16:31 Assessment & Plan Assessment & Plan (1) Upper respiratory tract infection: Code(s): J06.9 - Acute upper respiratory infection, unspecified Plan: Chest x-ray images personally reviewed by me. No infiltrate seen. Cough and nausea medication ordered. BW ordered. Orders: Orders XR chest 2V Today R05.9 - Cough, unspecified AMB Random Glucose (hemocue) Today Z13.9 - Encounter for screening, unspecified Coding Level of Care Code Est Pt Level 4 (96878) Diagnoses Upper respiratory tract infection J06.9
== END 2023-11-09 16:35 | disposition home or self-care (01) ==
PROVIDERS: PCP Internal Medicine; Visit Provider Internal Medicine
DX: J06.9 Acute upper respiratory infection, unspecified (principal); E11.9 Type 2 diabetes mellitus without complications
CPT/HCPCS: 82948; 99214

== ENCOUNTER 2023-11-09 16:22 | Outpatient (REF) | payer OTHER, SELFPAY ==
--- NOTE | ~2023-11-09 | XR_ITS ---
EXAMINATION: XR CHEST CLINICAL INFORMATION: Cough COMPARISON: None available. TECHNIQUE: 2 views of the chest were obtained. FINDINGS: Lungs are well-expanded and clear of acute process. Heart size and pulmonary vascularity is normal. There is moderate spondylosis dorsal spine. No aggressive lytic or sclerotic process. XR/XR chest 2V IMPRESSION: Moderate spondylosis dorsal spine. No aggressive lytic or sclerotic process.
== END 2023-11-09 16:23 | disposition home or self-care (01) ==
LOC: HO.HMGCX 16:22
PROVIDERS: PCP Internal Medicine; Visit Provider Internal Medicine
DX: R05.9 Cough, unspecified (principal)
CPT/HCPCS: 71046

== ENCOUNTER 2023-11-11 06:12 | Outpatient (REF) | payer OTHER, SELFPAY ==
[2023-11-11 11:19] LABS: Hematocrit 44.3 % (37.0-47.0); Hemoglobin 14.4 g/dl (12.0-16.0); Mean Corpuscular HGB Conc 32.5 g/dl (31.0-35.0); Mean Corpuscular Hemoglobin 30.5 pg (27.0-33.0); Mean Corpuscular Volume 93.9 fL (80.0-98.0); Mean Platelet Volume 9.9 fL (9.4-12.3); Platelet Count 418 X10*3/uL (160-400); Red Blood Count 4.72 X10*6/uL (4.20-5.50); Red Cell Distribution Width 14.1 % (11.0-16.0); White Blood Count 16.8 X10*3/uL (4.8-10.8)
[2023-11-11 11:33] LABS: Estimated Average Glucose 114 mg/dL; Hemoglobin A1c % 5.6 % (<6.0)
[2023-11-11 12:07] LABS: Alanine Aminotransferase 11 U/L (0-31); Albumin Level 3.8 g/dL (3.5-5.0); Alkaline Phosphatase 85 U/L (39-117); Anion Gap 12 (12-20); Aspartate Amino Transferase 14 U/L (5-31); Bilirubin Direct 0.2 mg/dL (0.0-0.5); Bilirubin Total 0.4 mg/dL (0.0-1.0); Blood Urea Nitrogen 16 mg/dL (9-16); Calcium 9.3 mg/dL (8.4-10.2); Carbon Dioxide 26 mmol/L (22-29); Chloride 103 mmol/L (96-108); Cholesterol 211 mg/dL (<200); Estimated Glomerular Filt Rate > 60; Glucose Random 138 mg/dL (60-115); HDL Cholesterol 38 mg/dL (>40); LDL Cholesterol Calculated 145 mg/dL (<100); Potassium 4.4 mmol/L (3.3-5.1); Sodium 137 mmol/L (135-145); Total Protein 7.6 g/dL (6.5-8.0); Triglycerides 142 mg/dL (<150)
== END 2023-11-11 06:13 | disposition home or self-care (01) ==
LOC: HO.HMGCLDS 06:12
PROVIDERS: PCP Internal Medicine; Visit Provider Internal Medicine
DX: E11.65 Type 2 diabetes mellitus with hyperglycemia (principal)
CPT/HCPCS: 36415; 80048; 80061; 80076; 83036; 84443; 85027

== ENCOUNTER 2023-11-16 16:34 | Outpatient (AMB) | payer OTHER, SELFPAY ==
[2023-11-16 16:35] VITALS: BP 140/76; PULSE 88; O2SAT 95; BMI 34.7
--- NOTE | 2023-11-16 16:35 | A.OFFPC_ITS ---
Vital Signs 11/16/23 16:35 Height 5 ft 2 in Weight 190 lb BMI 34.7 BP 140/76 H Blood Pressure Location Lt brachial Position Sitting Pulse 88 Pulse Source Pulse Oximeter Pulse Oximetry (%) 95 Oxygen Delivery Method Room Air Intake Visit Reasons: HTN, DM , Cholesterol weight Intake Note: Patient is here to follow up on HTN, DM, Cholesterol Weight Florist Required: No Allergies No Known Allergies [No Known Allergies*] Allergy (Verified 11/16/23 16:41) Medication List - Last Reconciled 11/16/23 by Joycelyn Carney MD albuterol sulfate 90 mcg/actuation (ProAir HFA) 2 puffs inhalation Q4H PRN albuterol sulfate 2.5 mg (3 mL) inhalation QID PRN albuterol sulfate 90 mcg/actuation 1 inh inhalation Q4-6H PRN aspirin 325 mg PO BID benzonatate 100 mg PO TID blood pressure monitor (Blood Pressure Kit) As directed budesonide-formoterol 160-4.5 mcg/actuation (Symbicort) 2 puffs inhalation BID bupropion HCl 200 mg PO BID lisinopril 5 mg PO DAILY omeprazole 20 mg PO DAILY ondansetron 8 mg PO Q8-12H PRN Tobacco use date assessed: 11/16/23 Dental Screening Dental Screen Date: 11/16/23 Did you have a dental visit in the last 12 months?: Yes Did you have a dental problem in the last 6 months where you did not have access to dental care?: No Was dental information given to patient?: Patient has dentist HPI HTN, DM , Cholesterol weight HPI Details 58-year-old obese female smoker with [employer] anxiety disorder hypercholesterolemia hypertension GERD and diabetes mellitus last seen in July 2023 patient is here for follow-up. Patient's colonoscopy is up-to-date mammograms up-to-date review of the notes in October 2023 [facility] an upper respiratory tract infection with stomach bug and was advised x-ray. And before that had cough and was treated with Tessalon and prednisone PFSH Surgical History History of back surgery Ventral hernia History of appendectomy Family History Father CVA (cerebral vascular accident) Diabetes mellitus Hypertension Mother Diabetes mellitus Hypertension CVD (cardiovascular disease) Myocardial infarction Brother No problems noted. Sister CVD (cardiovascular disease) Skin cancer Social History Housing: House Alcohol intake: former Patient Tobacco Use Status: Current everyday Tobacco user Tobacco use type: Cigarette Cigarettes Per Day: 6 e-Cigarette/Vaping Use: Never Used Second Hand Smoke Exposure: No Current occupational status: employed Cognitive needs: No Hearing needs: No Vision needs: Yes Questionnaire Thrive Questionnaire Date Thrive assessed: 11/16/23 AUDIT C Alcohol Use Questionnaire (AUDIT-C) 1. How often do you have a drink containing alcohol?: Never 3. How often do you have six or more drinks on one occasion?: Never Total Score: 0 Score Reviewed/Action Taken: No MARS-7 AMB Questionnaire MARS-7 Date MARS - 7 assessed: 11/16/23 Source: Developed by Drs. Tab Hodgson, Nighat Hernandez, Rich Camp and colleagues, with an educational jose from [employer]. Physical exam (Primary Care) Vital Signs: Last Vital Signs Pulse 88 11/16/23 16:35 BP 140/76 H 11/16/23 16:35 Pulse Ox 95 11/16/23 16:35 Oxygen Delivery Method Room Air 11/16/23 16:35 BMI result Body Mass Index 34.7 Tobacco/Smoking Status: Tobacco use Status Tobacco use date assessed 11/16/23 11/16/23 16:42 Patient Tobacco Use Status Current everyday Tobacco 11/16/23 16:42 Tobacco use type Cigarette 11/16/23 16:42 e-Cigarette/Vaping Use Never Used 11/16/23 16:42 Thrive Assessment: Date of Thrive Assessment Date Thrive assessed 11/16/23 11/16/23 16:42 Const General: alert; No acute distress Eyes Conjunctivae: conjunctivae normal Resp Auscultation: clear to auscultation bilaterally Cardio Rate: regular rate Rhythm: regular rhythm GI Inspection: Yes normal to inspection Extrem General: Yes normal to inspection and No edema Assessment and Plan Assessment & Plan (1) Type 2 diabetes mellitus with hyperglycemia: Code(s): E11.65 - Type 2 diabetes mellitus with hyperglycemia Plan: Decrease the amount of carbohydrate intake, pasta, bread, rice and potatoes are all sugar and that is aside from all the sweet stuff, remember that fruits are good but they are Sweet also. Hemoglobin A1c goal of less than 6.5. Patient is on metformin (2) Tobacco abuse: Code(s): Z72.0 - Tobacco use Plan: Patient is strongly advised to stop smoking! patient is cutting down (3) COPD (chronic obstructive pulmonary disease): Code(s): J44.9 - Chronic obstructive pulmonary disease, unspecified Plan: Advised strongly to stop smoking! Continue with Symbicort and albuterol (4) Hypertension: Code(s): I10 - Essential (primary) hypertension Plan: Continue with blood pressure medication. Decrease salt intake and exercise presently on lisinopril 5 mg once a day (5) Hypercholesterolemia: Code(s): E78.00 - Pure hypercholesterolemia, unspecified Plan: Avoid fried foods, chicken skin, eggs, butter margarine, pastries and meat. Be it pork or beef they have a lot of cholesterol LDL goal of less than 100 and triglyceride of less than 150 (6) Generalized anxiety disorder: Comment: zoom Q 2 week ADCARE Code(s): F41.1 - Generalized anxiety disorder Plan: Continue with counseling and therapy (7) GERD (gastroesophageal reflux disease): Code(s): K21.9 - Gastro-esophageal reflux disease without esophagitis Plan: Patient is strongly advised to stop smoking. Avoid the foods that causes that usually spicy foods, tomato products, juices, coffee, soda and foods that your sensitive to. After eating do not lie down, allow 3-4 hours before in lie down. And keep the head of bed above 30 degrees to avoid the acid from going up. Orders: Orders Lipid Panel 3 Months E78.00 - Pure hypercholesterolemia, unspecified Comprehensive Met. Panel 3 Months E78.00 - Pure hypercholesterolemia, unspecified Hemoglobin A1c 3 Months E11.65 - Type 2 diabetes mellitus with hyperglycemia [place] upper GI series Today K21.9 - Gastro-esophageal reflux disease without esophagitis, R13.10 - Dysphagia, unspecified Medications: New omeprazole 20 mg PO DAILY 30 caps 3RF K21.9 - Gastro-esophageal reflux disease without esophagitis albuterol sulfate 2.5 mg (3 mL) inhalation QID PRN 180 mL 1RF shortness of breath or wheezing J44.9 - Chronic obstructive pulmonary disease, unspecified Discontinued metformin Discontinued Reason: Doctor's Order 500 mg PO BIDWMEAL 60 tabs 3RF E11.65 - Type 2 diabetes mellitus with hyperglycemia Coding Level of Care Code Est Pt Level 4 (71028) Diagnoses Type 2 diabetes mellitus with hyperglycemia E11.65 Tobacco abuse Z72.0 COPD (chronic obstructive pulmonary disease) J44.9 Hypertension I10 Hypercholesterolemia E78.00 Generalized anxiety disorder F41.1 GERD (gastroesophageal reflux disease) K21.9
== END 2023-11-16 17:15 | disposition home or self-care (01) ==
PROVIDERS: PCP Internal Medicine; Visit Provider Internal Medicine
DX: E11.65 Type 2 diabetes mellitus with hyperglycemia (principal); Z72.0 Tobacco use; J44.9 Chronic obstructive pulmonary disease, unspecified; I10 Essential (primary) hypertension; E78.00 Pure hypercholesterolemia, unspecified; F41.1 Generalized anxiety disorder; K21.9 Gastro-esophageal reflux disease without esophagitis
CPT/HCPCS: 99214

== ENCOUNTER 2023-12-22 08:32 | Outpatient (REF) | payer OTHER, SELFPAY ==
[2023-12-22 12:28] LABS: CT PCR NOT DETECTED (Not Detect.); NG PCR NOT DETECTED (Not Detect.)
[2023-12-23 14:48] LABS: BV Int Neg Control Negative (Negative); BV Int Pos Control Positive (Positive)
== END 2023-12-22 08:33 | disposition home or self-care (01) ==
LOC: HO.LAB 08:32
PROVIDERS: PCP Internal Medicine; Visit Provider Advanced Practice Midwife
DX: Z01.419 Encounter for gynecological examination (general) (routine) without abnormal findings (principal); Z20.2 Contact with and (suspected) exposure to infections with a predominantly sexual mode of transmission; Z87.42 Personal history of other diseases of the female genital tract
CPT/HCPCS: 0353U; 87480; 87510; 87660

== ENCOUNTER 2023-12-22 08:32 | Outpatient (AMB) | payer OTHER, SELFPAY ==
--- NOTE | 2023-12-22 08:37 | MHC.OFFVIS ---
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 She is doing well with no concerns: she has some bumps she wants to have looked at and the vulvar region. Attempting to eat a healthy diet with calcium and vitamin D and stays active with very little exercise. Currently sexually active w/. Denies any vaginal dryness or irritation. STI testing offered; she accepts. Last pap smear; [id number] changes. Last mammogram; 05/2023. Colonoscopy is uncertain. Denies any family history of breast, ovarian or colon cancer. [facility] Medical History (Updated 12/22/23 @ 08:42 by LIU Pisano) Type 2 diabetes mellitus with hyperglycemia COPD (chronic obstructive pulmonary disease) Hypercholesterolemia Hypertension GERD (gastroesophageal reflux disease) Surgical History History of back surgery Ventral hernia History of appendectomy Family History Father CVA (cerebral vascular accident) Diabetes mellitus Hypertension Mother Diabetes mellitus Hypertension CVD (cardiovascular disease) Myocardial infarction Brother No problems noted. Sister CVD (cardiovascular disease) Skin cancer Social History (Updated 12/22/23 @ 08:43 by LIU Pisano) Housing: House Alcohol intake: former Patient Tobacco Use Status: Current everyday Tobacco user Tobacco use type: Cigarette Cigarettes Per Day: 6 e-Cigarette/Vaping Use: Never Used Second Hand Smoke Exposure: No Current occupational status: employed Sexual orientation: Straight/Heterosexual Gender identity: Female Cognitive needs: No Hearing needs: No Vision needs: Yes Female Reproductive History Menstrual Total pregnancies: 0 Date of last pap smear: 04/14/13 (lgsil) History of abnormal pap smear: Yes Date of Mammogram: 05/29/23 (Birad 1) Review of Systems Const All systems reviewed & are unremarkable except as noted in HPI and below Reports as per HPI Eyes Reports no additional complaints ENT Reports no additional complaints Card Reports no additional complaints Resp Reports no additional complaints GI Reports as per HPI and Reports no additional complaints Reports as per HPI Musc Reports no additional complaints Skin/Breast Reports as per HPI Neuro Reports no additional complaints Psych Reports no additional complaints Endo Reports no additional complaints Jose Daniel/Lymph Reports no additional complaints Aller/Immun Reports no additional complaints Physical Exam Vital Signs: Last Vital Signs BP 122/78 12/22/23 08:38 BMI result Body Mass Index 34.2 Const General: cooperative, healthy appearing, no acute distress, well developed and alert Orientation/consciousness: patient oriented x3 HEENT Head: Yes normal to inspection Eyes General: appearance normal, both eyes and all related structures Neck Neck: Yes normal visual inspection Thyroid: Thyroid normal Chest Chest palpation & inspection: normal inspection of the chest and other (no puckering, dimpling, peau de orange, retraction, discharge, masses) Breast/axilla inspection: normal inspection of the breasts Breast/axilla palpation: normal palpation of the breasts Resp Effort & Inspection: normal respiratory effort GI Inspection: Yes normal to inspection Palpation (GI): Soft to palpation Rectal Exam - Female: deferred Other: Extensive condylomata of vulva extending to the perianal region General: Yes bladder normal to palpation External Female Exam: normal external appearance and normal appearance of the urethra Speculum Exam - Vagina: normal appearance of the vagina, normal palpation and normal vaginal discharge Speculum Exam - Cervix: normal appearance of the cervix and normal palpation Bimanual exam- vagina & uterus: normal bimanual exam, normal palpation, uterine size normal, bladder normal to palpation, normal palpation and non-tender Bimanual Exam- Adnexa, other: no masses Skin General skin exam: no rashes or lesions noted Rashes: no rashes Neuro General: patient oriented x3 Cognition (Neuro): normal cognition Extrem General: Yes normal to inspection Psych Attitude: cooperative Thought process: Normal thought process present Assessment & Plan Assessment & Plan (1) Encounter for well woman exam with routine gynecological exam: Code(s): Z01.419 - Encounter for gynecological examination (general) (routine) without abnormal findings (2) History of abnormal cervical Pap smear: Code(s): Z87.42 - Personal history of other diseases of the female genital tract (3) Condylomata hari of vulva: Code(s): A51.31 - Condyloma latum (4) Possible exposure to STD: Code(s): Z20.2 - Contact with and (suspected) exposure to infections with a predominantly sexual mode of transmission Plan Discussed: Current recommendations for pap smears per ASCCP guidelines. Breast awareness, periodic self breast exams and yearly mammogram. Maintain a healthy lifestyle, well balanced diet including Calcium 1,200 mg and Vitamin D 600 IU daily, and routine exercise. Await Pap for plan of care consider referral to coppersmith apprentice for treatment options. STD blood work declined. Follow-up with primary care to talk about colonoscopy. Contact the office with any postmenopausal bleeding. Patient verbalizes understanding and agrees to the plan of care. She was given opportunity to ask questions and all questions were answered to the best of my ability. 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 This note is constructed using voice recognition software. While every effort has been made to ensure accuracy, client experience administrator errors may have been included. Orders: Orders Bacterial Vaginosis Panel Today Z20.2 - Contact with and (suspected) exposure to infections with a predominantly sexual mode of transmission CT NG by PCR Today Z20.2 - Contact with and (suspected) exposure to infections with a predominantly sexual mode of transmission Pap Smear Today Z01.419 - Encounter for gynecological examination (general) (routine) without abnormal findings, Z87.42 - Personal history of other diseases of the female genital tract Coding Level of Care Code New Pt Prev Care 40-64y(96404) Diagnoses Encounter for well woman exam with routine gynecological exam Z01.419 History of abnormal cervical Pap smear Z87.42 Condylomata hari of vulva A51.31 Possible exposure to STD Z20.2
[2023-12-22 08:38] VITALS: BP 122/78; BMI 34.2
== END 2023-12-22 10:30 | disposition home or self-care (01) ==
PROVIDERS: PCP Internal Medicine; Visit Provider Advanced Practice Midwife
DX: Z01.419 Encounter for gynecological examination (general) (routine) without abnormal findings (principal); Z87.42 Personal history of other diseases of the female genital tract; A51.31 Condyloma latum; Z20.2 Contact with and (suspected) exposure to infections with a predominantly sexual mode of transmission
CPT/HCPCS: 99386

== ENCOUNTER 2023-12-22 09:04 | Outpatient (REF) | payer OTHER, SELFPAY ==
[2023-12-31 05:09] LABS: HPV 16 RNA NOT DETECTED (NOT DETECTED); HPV mRNA E6/E7 rflx Detected (Not Detected)
== END 2023-12-22 09:05 | disposition home or self-care (01) ==
LOC: HO.LNP 09:04
PROVIDERS: Visit Provider Advanced Practice Midwife
DX: Z01.419 Encounter for gynecological examination (general) (routine) without abnormal findings (principal); Z11.51 Encounter for screening for human papillomavirus (HPV); Z87.42 Personal history of other diseases of the female genital tract
CPT/HCPCS: 87624; 87625; 88142

== ENCOUNTER 2024-02-22 14:27 | Outpatient (AMB) | payer OTHER, SELFPAY ==
[2024-02-22 14:30] VITALS: BP 124/60; PULSE 67; O2SAT 96; BMI 35.1
--- NOTE | 2024-02-22 14:30 | A.OFFPC_ITS ---
Vital Signs 02/22/24 14:30 Height 5 ft 2 in Weight 192 lb 0.4 oz BMI 35.1 BP 124/60 Blood Pressure Location Lt brachial Position Sitting Pulse 67 Pulse Source Pulse Oximeter Pulse Oximetry (%) 96 Oxygen Delivery Method Room Air Intake Visit Reasons: DM [employer] Required: No Allergies lisinopril Adverse Reaction (Intermediate, Unverified 02/22/24 14:52) cough Medication List - Last Reconciled 02/22/24 by Joycelyn Carney MD amoxicillin-pot clavulanate 875-125 mg 1 tab PO BID aspirin 325 mg PO BID blood pressure monitor (Blood Pressure Kit) As directed budesonide-formoterol 160-4.5 mcg/actuation (Symbicort) 2 puffs inhalation BID bupropion HCl SR 200 mg PO BID omeprazole 20 mg PO DAILY Tobacco use date assessed: 02/22/24 Dental Screening Dental Screen Date: 11/16/23 HPI DM HPI Details 58-year-old obese female smoker with marianela betes mellitus COPD hypertension hypercholesterolemia generalized anxiety disorder and GERD last seen in October 2023. Colonoscopy December 2016, mammogram up-to-date.L groin abscess 4 months got better. but over the weekend swelling L groin pain and redness. Patient continues to complain of a dry nagging cough and concern about the lisinopril. Reminded about blood work that has not been done. [facility] Medical History (Updated 02/22/24 @ 14:56 by Joycelyn Carney MD) Type 2 diabetes mellitus with hyperglycemia COPD (chronic obstructive pulmonary disease) Hypercholesterolemia Hypertension GERD (gastroesophageal reflux disease) Surgical History History of back surgery Ventral hernia History of appendectomy Family History Father CVA (cerebral vascular accident) Diabetes mellitus Hypertension Mother Diabetes mellitus Hypertension CVD (cardiovascular disease) Myocardial infarction Brother No problems noted. Sister CVD (cardiovascular disease) Skin cancer Social History (Updated 12/22/23 @ 08:43 by LIU Pisano) Housing: House Alcohol intake: former Patient Tobacco Use Status: Current everyday Tobacco user Tobacco use type: Cigarette Cigarettes Per Day: 6 e-Cigarette/Vaping Use: Never Used Second Hand Smoke Exposure: No Current occupational status: employed Sexual orientation: Straight/Heterosexual Gender identity: Female Cognitive needs: No Hearing needs: No Vision needs: Yes Questionnaire Thrive Questionnaire Date Thrive assessed: 11/16/23 AUDIT C Alcohol Use Questionnaire (AUDIT-C) 1. How often do you have a drink containing alcohol?: Never 3. How often do you have six or more drinks on one occasion?: Never Total Score: 0 Score Reviewed/Action Taken: No MARS-7 AMB Questionnaire MARS-7 Date MARS - 7 assessed: 11/16/23 Source: Developed by Drs. Tab Hodgson, Nighat Hernandez, Rich Camp and colleagues, with an educational jose from [employer]. Physical exam (Primary Care) Vital Signs: Last Vital Signs Pulse 67 02/22/24 14:30 BP 124/60 02/22/24 14:30 Pulse Ox 96 02/22/24 14:30 Oxygen Delivery Method Room Air 02/22/24 14:30 BMI result Body Mass Index 35.1 Tobacco/Smoking Status: Tobacco use Status Tobacco use date assessed 02/22/24 02/22/24 14:33 Patient Tobacco Use Status Current everyday Tobacco 02/22/24 14:33 Tobacco use type Cigarette 02/22/24 14:33 e-Cigarette/Vaping Use Never Used 02/22/24 14:33 Thrive Assessment: Date of Thrive Assessment Date Thrive assessed 11/16/23 02/22/24 14:33 Const General: alert; No acute distress Eyes Conjunctivae: conjunctivae normal Resp Auscultation: clear to auscultation bilaterally Cardio Rate: regular rate Rhythm: regular rhythm GI Inspection: Yes normal to inspection Extrem General: Yes normal to inspection and No edema Results AMB Hemoglobin A1c AMB Hemoglobin A1c 6.0 % Last Edit by LIU Jasso on 02/22/24 14:41 Results Reviewed Results Reviewed: Laboratory Last Values Hgb A1c (Clinic) 6.0 % (4.0-6.0) 02/22/24 14:11 Assessment and Plan Assessment & Plan (1) Type 2 diabetes mellitus with hyperglycemia: Code(s): E11.65 - Type 2 diabetes mellitus with hyperglycemia Plan: Decrease the amount of carbohydrate intake, pasta, bread, rice and potatoes are all sugar and that is aside from all the sweet stuff, remember that fruits are good but they are Sweet also. Hemoglobin A1c goal of less than 6.5. Patient on diet control (2) Tobacco abuse: Code(s): Z72.0 - Tobacco use Plan: Patient is strongly advised to stop smoking summation point. 2 cigarettes a day (3) COPD (chronic obstructive pulmonary disease): Code(s): J44.9 - Chronic obstructive pulmonary disease, unspecified Plan: Stop smoking! On Symbicort p.r.n. (4) Hypertension: Code(s): I10 - Essential (primary) hypertension Plan: Continue with blood pressure medication. Decrease salt intake and exercise takes lisinopril 5 mg once a day (5) Hypercholesterolemia: Code(s): E78.00 - Pure hypercholesterolemia, unspecified Plan: Avoid fried foods, chicken skin, eggs, butter margarine, pastries and meat. Be it pork or beef they have a lot of cholesterol LDL goal of less than 100 and triglyceride of less than 150. (6) GERD (gastroesophageal reflux disease): Code(s): K21.9 - Gastro-esophageal reflux disease without esophagitis Plan: Avoid the foods that causes that usually spicy foods, tomato products, juices, coffee, soda and foods that your sensitive to. After eating do not lie down, allow 3-4 hours before in lie down. And keep the head of bed above 30 degrees to avoid the acid from going up. (7) Generalized anxiety disorder: Comment: zoom Q 2 week ADCARE Code(s): F41.1 - Generalized anxiety disorder Plan: Continue with counseling and therapy. (8) Groin abscess: Comment: left Code(s): L02.214 - Cutaneous abscess of groin (9) Cough: Code(s): R05.9 - Cough, unspecified Plan: Patient complains of a dry nagging cough and with the lisinopril there will discontinue it. Orders: Orders AMB Hemoglobin A1c Today E11.65 - Type 2 diabetes mellitus with hyperglycemia Medications: New amoxicillin-pot clavulanate 875-125 mg 1 tab PO BID 14 tabs 0RF L02.214 - Cutaneous abscess of groin Discontinued 2 lisinopril Discontinued Reason: Doctor's Order 5 mg PO DAILY 90 tabs 1RF I10 - Essential (primary) hypertension Coding Level of Care Code Est Pt Level 4 ([id number]) Diagnoses Type 2 diabetes mellitus with hyperglycemia E11.65 Tobacco abuse Z72.0 COPD (chronic obstructive pulmonary disease) J44.9 Hypertension I10 Hypercholesterolemia E78.00 GERD (gastroesophageal reflux disease) K21.9 Generalized anxiety disorder F41.1 Groin abscess L02.214 Cough R05.9
== END 2024-02-22 14:58 | disposition home or self-care (01) ==
LOC: HO.HMGH 14:27
PROVIDERS: PCP Internal Medicine; Visit Provider Internal Medicine
DX: E11.65 Type 2 diabetes mellitus with hyperglycemia (principal); Z72.0 Tobacco use; J44.9 Chronic obstructive pulmonary disease, unspecified; I10 Essential (primary) hypertension; E78.00 Pure hypercholesterolemia, unspecified; K21.9 Gastro-esophageal reflux disease without esophagitis; F41.1 Generalized anxiety disorder; L02.214 Cutaneous abscess of groin; R05.9 Cough, unspecified
CPT/HCPCS: 83036; 99214

== ENCOUNTER 2024-03-30 07:05 | Outpatient (REF) | payer OTHER, SELFPAY ==
[2024-03-30 07:55] LABS: Estimated Average Glucose 126 mg/dL
[2024-03-30 08:39] LABS: Alanine Aminotransferase 14 U/L (0-31); Albumin Level 4.2 g/dL (3.5-5.0); Alkaline Phosphatase 105 U/L (39-117); Anion Gap 16 (12-20); Aspartate Amino Transferase 17 U/L (5-31); Bilirubin Total 0.3 mg/dL (0.0-1.0); Blood Urea Nitrogen 14 mg/dL (9-16); Calcium 9.9 mg/dL (8.4-10.2); Carbon Dioxide 26 mmol/L (22-29); Chloride 103 mmol/L (96-108); Cholesterol 268 mg/dL (<200); Estimated Glomerular Filt Rate > 60; Glucose Random 156 mg/dL (60-115); HDL Cholesterol 42 mg/dL (>40); LDL Cholesterol Calculated 147 mg/dL (<100); Potassium 4.9 mmol/L (3.3-5.1); Sodium 140 mmol/L (135-145); Total Protein 8.6 g/dL (6.5-8.0); Triglycerides 398 mg/dL (<150)
== END 2024-03-30 07:06 | disposition home or self-care (01) ==
LOC: HO.LAB 07:05
PROVIDERS: PCP Internal Medicine; Visit Provider Internal Medicine
DX: E78.00 Pure hypercholesterolemia, unspecified (principal); E11.65 Type 2 diabetes mellitus with hyperglycemia
CPT/HCPCS: 36415; 80053; 80061; 83036

== ENCOUNTER 2024-04-15 13:09 | Outpatient (AMB) | payer OTHER, SELFPAY ==
[2024-04-15 13:11] VITALS: BP 138/76; PULSE 68; O2SAT 96; BMI 35.3
--- NOTE | 2024-04-15 13:11 | MHC.PC.OV ---
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: No Allergies lisinopril Adverse Reaction (Intermediate, Verified 04/15/24 13:12) cough Medication List - Last Reconciled 04/15/24 by Joycelyn Carney MD albuterol sulfate 90 mcg/actuation 2 puffs inhalation Q6H PRN aspirin 325 mg PO BID blood pressure monitor (Blood Pressure Kit) As directed budesonide-formoterol 160-4.5 mcg/actuation (Symbicort) 2 puffs inhalation BID bupropion HCl SR 200 mg PO BID esomeprazole magnesium 20 mg PO DAILY Tobacco use date assessed: 02/22/24 Dental Screening Dental Screen Date: 04/15/24 Did you have a dental visit in the last 12 months?: No Did you have a dental problem in the last 6 months where you did not have access to dental care?: No HPI pe HPI Details 58-year-old obese female smoker with diabetes mellitus hypercholesterolemia hypertension COPD GERD with generalized anxiety disorder last seen in 03/07/2024. Patient is here for physical exam: Test last done in 2017 mammogram is up-to-date. dizzy with nausea and vomiting, has dysphagia PFSH Medical History (Updated 04/15/24 @ 13:57 by Joycelyn Carney MD) Groin abscess Alcohol abuse Type 2 diabetes mellitus with hyperglycemia COPD (chronic obstructive pulmonary disease) Hypercholesterolemia Hypertension GERD (gastroesophageal reflux disease) Surgical History History of back surgery Ventral hernia History of appendectomy Family History (Updated 04/15/24 @ 13:39 by Joycelyn Carney MD) Father CVA (cerebral vascular accident) Diabetes mellitus Hypertension Mother Diabetes mellitus Hypertension CVD (cardiovascular disease) Myocardial infarction Brother No problems noted. Sister CVD (cardiovascular disease) Skin cancer Lung cancer Social History (Updated 04/15/24 @ 13:40 by Joycelyn Carney MD) Housing: House Alcohol intake: former Comment: stopped 11/2022 Patient Tobacco Use Status: Current everyday Tobacco user Tobacco use type: Cigarette Cigarettes Per Day: 3 Years Smoked: 11 years old start e-Cigarette/Vaping Use: Never Used Second Hand Smoke Exposure: No Current occupational status: employed Sexual orientation: Straight/Heterosexual Gender identity: Female Cognitive needs: No Hearing needs: No Vision needs: Yes Questionnaire PHQ-9 Over the last 2 weeks, how often have you been bothered by any of the following problems? 1. Little interest or pleasure in doing things: more than half the days 2. Feeling down, depressed, or hopeless: several days 3. Trouble falling or staying asleep, or sleeping too much: nearly every day 4. Feeling tired or having little energy: nearly every day 5. Poor appetite or overeating: several days 6. Feeling bad about yourself - or that you are a failure or have let yourself or your family down: more than half the days 7. Trouble concentrating on things, such as reading the newspaper or watching television: not at all 8. Moving or speaking so slowly that other people could have noticed. Or the opposite - being so fidgety or restless that you have been moving around a lot more than usual: not at all 9. Thoughts that you would be better off or of hurting yourself in some way: not at all Total score: 12 Depression Screening Interpretation: Negative Depression Screening Done: Yes 37901 - PHQ-9 Billing: Yes Source: Developed by Drs. Tab Hodgson, Nighat Hernandez, Rich Camp and colleagues, with an educational jose from [employer]. Thrive Questionnaire Date Thrive assessed: 11/16/23 AUDIT C Alcohol Use Questionnaire (AUDIT-C) 1. How often do you have a drink containing alcohol?: Never 3. How often do you have six or more drinks on one occasion?: Never Total Score: 0 Score Reviewed/Action Taken: No MARS-7 AMB Questionnaire MARS-7 Date MARS - 7 assessed: 04/15/24 Feeling nervous, anxious, or on edge: 2 = More than half the days Not being able to stop or control worryin = More than half the days Worrying too much about different things: 2 = More than half the days Trouble relaxin = More than half the days Being so restless that it is hard to sit still: 1 = Several days Becoming easily annoyed or irritable: 2 = More than half the days Feeling afraid as if something awful might happen: 2 = More than half the days Total MARS-7 score (0-4 normal; 5-9 mild; 10-14 moderate; 15-21 severe): 13 Source: Developed by Drs. Tab Hodgson, Nighat Hernandez, Rich Camp and colleagues, with an educational jose from [employer]. MARS-7 Assessment Billing MARS-7 Assessment Tool: MARS-7 Assessment 21551 Review of Systems Const Denies poor appetite and Denies weakness Eyes Denies no additional complaints ENT Reports Normal hearing present, Denies dizziness, Denies nasal congestion, Denies tinnitus and Denies sore throat Card Denies chest pain, Denies syncope, Denies rapid heart rate and Denies dyspnea Resp Denies cough and Denies dyspnea GI Denies change in stool character, Reports constipation, Denies diarrhea, Denies nausea and Denies vomiting Denies urinary frequency, Denies difficulty voiding and Denies dysuria Neuro Reports Normal hearing present, Denies confusion, Denies dizziness, Denies syncope and Denies weakness Psych Denies confusion Physical exam (Primary Care) Vital Signs: Last Vital Signs Pulse 68 04/15/24 13:11 BP 138/76 04/15/24 13:11 Pulse Ox 96 04/15/24 13:11 Oxygen Delivery Method Room Air 04/15/24 13:11 BMI result Body Mass Index 35.3 Tobacco/Smoking Status: Tobacco use Status Tobacco use date assessed 02/22/24 04/15/24 13:12 Patient Tobacco Use Status Current everyday Tobacco 04/15/24 13:40 Tobacco use type Cigarette 04/15/24 13:40 e-Cigarette/Vaping Use Never Used 04/15/24 13:40 PHQ-9: PHQ-9 Score PHQ-9: Total score 12 04/15/24 13:35 Depression Screening Interpretation: Negative Thrive Assessment: Date of Thrive Assessment Date Thrive assessed 11/16/23 04/15/24 13:12 Const General: No confusion Orientation/consciousness: No confusion HENMT Head: Yes normocephalic Ears: external ears normal and TM's normal bilaterally Face and sinus: Yes normal facial exam Mouth: moist mucous membranes Throat: Yes tonsils normal Eyes Conjunctivae: conjunctivae normal Pupils: Equal, round and reactive pupils present and Pupil accommodation reflex normal Direct Ophthalmoscopy: normal light reflex Neck Other: spider angiomata noted on the neck area pin prick and pedal pulses good, Neck: No lymphadenopathy Thyroid: Thyroid normal Chest Chest palpation & inspection: normal inspection of the chest Resp Effort & Inspection: normal respiratory effort and no audible wheezes Auscultation: clear to auscultation bilaterally, no crackles, no wheezes and lung sounds not diminished Cardio Rate: regular rate Rhythm: regular rhythm Peripheral pulses: radial pulses present and dorsalis pedis present GI Palpation (GI): no masses Auscultation: normal bowel sounds and normoactive bowel sounds Rectal Exam - Female: deferred Skin General skin exam: no rashes or lesions noted Rashes: no rashes Neuro General: No confusion Cranial nerves: Yes Equal, round and reactive pupils present and Yes Normal hearing present Cognition (Neuro): normal cognition Gait exam (Neuro): Normal gait present Motor exam (neuro): 5/5 motor strength present throughout Deep tendon reflexes (DTR's): Right brachioradialis reflex intensity grade: 2+, Left brachioradialis reflex intensity grade: 2+, Right patellar reflex intensity grade: 2+ and Left patellar reflex intensity grade: 2+ Extrem General: No edema Immunizations Boostrix Tdap 2.5 Lf unit-8 mcg-5 Lf/0.5 mL intramuscular syringe Performing Provider: Joycelyn Carney MD [facility] Administered by: CHITO Bartlett on 04/15/24 14:06 Dose Route Admin Location Dispensed Lot Number Expiration Date NDC Operations Team Leader 0.5 mL IM Right Deltoid 0.5 mL [id number] 05/27/26 16204-548-90 [employer] VIS Given Date VIS Provided VIS Publication Date 04/15/24 Single Vaccine 21 Eligibility Eligibility Date Funding Source Not [facility] Eligible 04/15/24 Private Assessment and Plan Assessment & Plan (1) Annual physical exam: Code(s): Z00.00 - Encounter for general adult medical examination without abnormal findings Plan: Patient is advised to eat healthy, keep well hydrated, keep active and have adequate sleep. (2) Tobacco abuse: Code(s): Z72.0 - Tobacco use Plan: Patient is strongly advised to stop smoking! (3) Type 2 diabetes mellitus with hyperglycemia: Code(s): E11.65 - Type 2 diabetes mellitus with hyperglycemia Plan: Decrease the amount of carbohydrate intake, pasta, bread, rice and potatoes are all sugar and that is aside from all the sweet stuff, remember that fruits are good but they are Sweet also. This is under control hemoglobin A1c goal of less than 6.5. (4) COPD (chronic obstructive pulmonary disease): Code(s): J44.9 - Chronic obstructive pulmonary disease, unspecified Plan: Continue with inhaler but advised strongly to stop smoking! (5) Hypertension: Code(s): I10 - Essential (primary) hypertension Plan: Decrease salt intake and exercise this is controlled with no medication (6) Hypercholesterolemia: Code(s): E78.00 - Pure hypercholesterolemia, unspecified Plan: Avoid fried foods, chicken skin, eggs, butter margarine, pastries and meat. Be it pork or beef they have a lot of cholesterol LDL goal of less than 130 and triglyceride of less than 150. (7) Generalized anxiety disorder: Comment: zoom Q 2 week ADCARE Code(s): F41.1 - Generalized anxiety disorder Plan: Continue with counseling and therapy (8) Dysphagia: Code(s): R13.10 - Dysphagia, unspecified (9) Vaginal candidiasis: Code(s): B37.31 - Acute candidiasis of vulva and vagina (10) Hypersomnia: Code(s): G47.10 - Hypersomnia, unspecified Orders: Orders FL barium swallow Today R13.10 - Dysphagia, unspecified FL upper GI series Today R13.10 - Dysphagia, unspecified Lipid Panel 3 Months E78.00 - Pure hypercholesterolemia, unspecified Comprehensive Met. Panel 3 Months E78.00 - Pure hypercholesterolemia, unspecified Complete Blood Count Auto Diff 3 Months E11.65 - Type 2 diabetes mellitus with hyperglycemia RT home sleep study Today G47.10 - Hypersomnia, unspecified TDaP Immunization Today Z23 - Encounter for immunization Hemoglobin A1c 3 Months E11.65 - Type 2 diabetes mellitus with hyperglycemia Referrals Ophthalmology Referral E11.65 - Type 2 diabetes mellitus with hyperglycemia Lung Cancer Screening Referral Z72.0 - Tobacco use Medications: New rosuvastatin 5 mg PO DAILY 30 tabs 4RF E78.00 - Pure hypercholesterolemia, unspecified fluconazole 150 mg PO Q3D 2 tabs 0RF B37.31 - Acute candidiasis of vulva and vagina umeclidinium 62.5 mcg/actuation (Incruse Ellipta) 1 inh inhalation BEDTIME 30 ea 7RF J44.9 - Chronic obstructive pulmonary disease, unspecified Boostrix Tdap (diphth,pertus(acell),tetanus) 0.5 mL IM ONCE 0.5 mL 0RF NS Z23 - Encounter for immunization Coding Level of Care Code Est Pt Prev Care 40-64y(11361) Diagnoses Annual physical exam Z00.00 Tobacco abuse Z72.0 Type 2 diabetes mellitus with hyperglycemia E11.65 COPD (chronic obstructive pulmonary disease) J44.9 Hypertension I10 Hypercholesterolemia E78.00 Generalized anxiety disorder F41.1 Dysphagia R13.10 Vaginal candidiasis B37.31 Hypersomnia G47.10 Additional Codes MARS-7 Assessment Billing - MARS-7 Assessment Tool: MARS-7 Assessment 92269 ([id number])
== END 2024-04-15 14:07 | disposition home or self-care (01) ==
PROVIDERS: PCP Internal Medicine; Visit Provider Internal Medicine
DX: Z00.00 Encounter for general adult medical examination without abnormal findings (principal); E11.65 Type 2 diabetes mellitus with hyperglycemia; J44.9 Chronic obstructive pulmonary disease, unspecified; Z23 Encounter for immunization; Z72.0 Tobacco use; I10 Essential (primary) hypertension; E78.00 Pure hypercholesterolemia, unspecified; F41.1 Generalized anxiety disorder; R13.10 Dysphagia, unspecified; B37.31 Acute candidiasis of vulva and vagina; G47.10 Hypersomnia, unspecified
CPT/HCPCS: 90471; 90715; 99396

== ENCOUNTER 2024-08-17 07:58 | Outpatient (AMB) | payer OTHER, SELFPAY ==
[2024-08-17 08:03] VITALS: BP 144/90; PULSE 84; O2SAT 97; BMI 35.5
--- NOTE | 2024-08-17 08:03 | A.OFFPC_ITS ---
Vital Signs 08/17/24 08:03 Height 5 ft 2 in Weight 194 lb 0.6 oz BMI 35.5 BP 144/90 H Blood Pressure Location Lt brachial Position Sitting Pulse 84 Pulse Source Pulse Oximeter Pulse Oximetry (%) 97 Oxygen Delivery Method Room Air Intake Visit Reasons: DM, Groin Abscess Allergies lisinopril Adverse Reaction (Intermediate, Verified 08/17/24 08:06) cough Medication List - Last Reconciled 08/17/24 by Annika Rutherford PA-C albuterol sulfate 90 mcg/actuation 2 puffs inhalation Q6H PRN aspirin 325 mg PO BID blood pressure monitor (Blood Pressure Kit) As directed budesonide-formoterol 160-4.5 mcg/actuation (Symbicort) 2 puffs inhalation BID bupropion HCl SR 200 mg PO BID esomeprazole magnesium 20 mg PO DAILY fluconazole 150 mg PO Q3D 2 doses rosuvastatin 5 mg PO DAILY tiotropium bromide 2.5 mcg/actuation (Spiriva Respimat) 2 puffs inhalation BEDTIME umeclidinium 62.5 mcg/actuation (Incruse Ellipta) 1 inh inhalation BEDTIME Tobacco use date assessed: 02/22/24 Dental Screening Dental Screen Date: 04/15/24 HPI DM, Groin Abscess HPI Details 59-year-old obese female smoker with marianela betes mellitus hypercholesterolemia hypertension COPD GERD with generalized anxiety disorder last seen by Dr. Carney March 2024 coming in for follow up on DM. Patient states she has a history of scoliosis and typically will have intermittent back pain. She recently went on vacation and while on vacation she was walking for long periods of time and developed right hip pain. The pain has been persistent. She has no other concerns today. [facility] Medical History (Updated 08/17/24 @ 08:21 by Annika Rutherford PA-C) Groin abscess Alcohol abuse Type 2 diabetes mellitus with hyperglycemia COPD (chronic obstructive pulmonary disease) Hypercholesterolemia Hypertension GERD (gastroesophageal reflux disease) Surgical History History of back surgery Ventral hernia History of appendectomy Family History (Updated 04/15/24 @ 13:39 by Joycelyn Carney MD) Father CVA (cerebral vascular accident) Diabetes mellitus Hypertension Mother Diabetes mellitus Hypertension CVD (cardiovascular disease) Myocardial infarction Brother No problems noted. Sister CVD (cardiovascular disease) Skin cancer Lung cancer Social History (Updated 04/15/24 @ 13:40 by Joycelyn Carney MD) Housing: House Alcohol intake: former Comment: stopped 11/2022 Patient Tobacco Use Status: Current everyday Tobacco user Tobacco use type: Cigarette Cigarettes Per Day: 3 Years Smoked: 11 years old start e-Cigarette/Vaping Use: Never Used Second Hand Smoke Exposure: No Current occupational status: employed Sexual orientation: Straight/Heterosexual Gender identity: Female Cognitive needs: No Hearing needs: No Vision needs: Yes Questionnaire Thrive Questionnaire Date Thrive assessed: 11/16/23 AUDIT C Alcohol Use Questionnaire (AUDIT-C) 1. How often do you have a drink containing alcohol?: Never 3. How often do you have six or more drinks on one occasion?: Never Total Score: 0 Score Reviewed/Action Taken: No MARS-7 AMB Questionnaire MARS-7 Date MARS - 7 assessed: 04/15/24 Source: Developed by Drs. Tab Hodgson, Nighat Hernandez, Rich Camp and colleagues, with an educational jose from [employer]. Review of Systems Const Denies body aches, Denies chills and Denies fever(s) Eyes Reports no additional complaints ENT Reports no additional complaints Card Denies chest pain, Denies edema, Denies lightheadedness and Denies dyspnea Resp Denies cough and Denies dyspnea GI Denies abdominal pain, Denies constipation, Denies diarrhea, Denies nausea and Denies vomiting Reports no additional complaints Musc Details: Right hip pain Reports abnormal gait and Reports back pain Skin/Breast Reports system reviewed and no additional complaints, except as documented Neuro Reports no additional complaints and Reports abnormal gait Psych Reports no additional complaints Physical exam (Primary Care) Vital Signs: Last Vital Signs Pulse 84 08/17/24 08:03 BP 144/90 H 08/17/24 08:03 Pulse Ox 97 08/17/24 08:03 Oxygen Delivery Method Room Air 08/17/24 08:03 BMI result Body Mass Index 35.5 Tobacco/Smoking Status: Tobacco use Status Tobacco use date assessed 02/22/24 08/17/24 08:08 Patient Tobacco Use Status Current everyday Tobacco 08/17/24 08:08 Tobacco use type Cigarette 08/17/24 08:08 e-Cigarette/Vaping Use Never Used 08/17/24 08:08 Are you ready to quit: Yes Tobacco cessation counseling provided: Yes Items discussed: Nicotine replacement Relapse Prevention: discussed the importance of a supportive environment and discussed dietary, exercise and/or lifestyle changes CPT code: Less than 3 minutes Thrive Assessment: Date of Thrive Assessment Date Thrive assessed 11/16/23 08/17/24 08:08 Const General: cooperative, healthy appearing, comfortable and no acute distress Orientation/consciousness: patient oriented x3 HENMT Head: Yes normocephalic Ears: hearing grossly normal bilaterally General nose exam: Normal external nose present Eyes General: appearance normal, both eyes and all related structures Conjunctivae: conjunctivae normal Neck Neck: Yes full ROM and Yes no lymphadenopathy Resp Effort & Inspection: normal respiratory effort Auscultation: clear to auscultation bilaterally, no crackles, no rales, no rhonchi and no wheezes Cardio Rate: regular rate Rhythm: regular rhythm Back/Spine/Pelvis Other: Pain with active range of motion of lateral raise and extension of right hip. Pain to palpation of anterolateral aspect of right hip Skin General skin exam: no rashes or lesions noted Neuro General: patient oriented x3 Gait exam (Neuro): Normal gait present Extrem General: Yes normal to inspection, Yes full ROM and No edema Psych Affect: normal affect Attitude: cooperative Insight: Good insight present (Psych) Judgement: Good judgement present (Psych) Results AMB Hemoglobin A1c AMB Hemoglobin A1c 7.2 % Last Edit by LIU Jasso on 08/17/24 08:12 Results Reviewed Results Reviewed: Laboratory Last Values Hgb A1c (Clinic) 7.2 % (4.0-6.0) H 08/17/24 08:01 Coding Level of Care Code Est Pt Level 4 (20542) Diagnoses Dysphagia R13.10 GERD (gastroesophageal reflux disease) K21.9 Hypertension I10 Hypercholesterolemia E78.00 COPD (chronic obstructive pulmonary disease) J44.9 Type 2 diabetes mellitus with hyperglycemia E11.65 Right hip pain M25.551 Assessment & Plan Assessment & Plan (1) Dysphagia: Code(s): R13.10 - Dysphagia, unspecified Category: Medical Plan: Reminded patient about barium swallow. (2) GERD (gastroesophageal reflux disease): Code(s): K21.9 - Gastro-esophageal reflux disease without esophagitis Category: Medical Plan: Avoid trigger foods such as citrus, tomato products, soda, caffeine, spicy foods and other foods that may be irritating to your stomach. Avoid laying flat 3-4 hours after eating and elevate the head of the bed 30 degrees to prevent acid from moving into the esophagus. (3) Hypertension: Code(s): I10 - Essential (primary) hypertension Category: Medical Plan: Continue on current blood pressure medication. Avoid salt intake and encourage healthy diet and regular exercise. Blood pressure mildly elevated today. Advised to continue with home blood pressures and if pressures are consistently over 140/90 to reach out to the office. (4) Hypercholesterolemia: Code(s): E78.00 - Pure hypercholesterolemia, unspecified Category: Medical Plan: Avoid foods that are high in cholesterol such as red meat, fried foods, eggs and baked goods. Triglyceride goal of less than 150 and LDL goal of less than 100. Recently started on rosuvastatin 5 mg ordered for updated blood work. (5) COPD (chronic obstructive pulmonary disease): Code(s): J44.9 - Chronic obstructive pulmonary disease, unspecified Category: Medical Plan: COPD currently controlled on present medications. Avoid triggers such as allergies. (6) Type 2 diabetes mellitus with hyperglycemia: Code(s): E11.65 - Type 2 diabetes mellitus with hyperglycemia Category: Medical Plan: Decrease the amount of carbohydrates such as pasta, bread, rice, and potatoes and limit the amount of sweets. Although fruits are generally healthy they should be eaten in moderation as they are still high in sugar. Hemoglobin A1c goal of less than 7%. A1c 7.2% in the office today she was taken off of Metformin at last visit. Will trial Ozempic weekly and follow up in 3 months. (7) Right hip pain: Code(s): M25.551 - Pain in right hip Category: Medical Plan: Patient complaining of right hip pain exam most consistent with bursitis but we will order for x-ray to rule out osteoarthritis. Advised patient to use ibuprofen and ice for pain management. Advised to rest and do gentle stretching of the hip. Can consider orthopedics or pain management referral for injections. Plan This note was constructed using voice recognition software. While every effort has been made to ensure accuracy and patient relations coordinator, still areas may have been included sometimes these areas may affect the content or meeting of the given symptoms. Total time spent caring for the patient today was 30 minutes. This includes time spent before the visit reviewing the chart, time spent during the visit, and time spent after the visit and documentation. Orders: Orders XR hip RT min 2V Today M25.551 - Pain in right hip AMB Hemoglobin A1c Today E11.65 - Type 2 diabetes mellitus with hyperglycemia Medications: New semaglutide (Ozempic) for 4 weeks 0.25 mg (0.368 mL) subcut QWEEK 3 mL 0RF
== END 2024-08-17 08:33 | disposition home or self-care (01) ==
LOC: HO.HMCH 07:58
PROVIDERS: PCP Internal Medicine
DX: R13.10 Dysphagia, unspecified (principal); K21.9 Gastro-esophageal reflux disease without esophagitis; J44.9 Chronic obstructive pulmonary disease, unspecified; E11.65 Type 2 diabetes mellitus with hyperglycemia; I10 Essential (primary) hypertension; E78.00 Pure hypercholesterolemia, unspecified; M25.551 Pain in right hip

== ENCOUNTER → 2024-08-17 07:58 | Outpatient (BNVA) | payer OTHER, SELFPAY | PROVIDERS: PCP Internal Medicine | DX: R13.10 Dysphagia, unspecified (principal); K21.9 Gastro-esophageal reflux disease without esophagitis; I10 Essential (primary) hypertension; E78.00 Pure hypercholesterolemia, unspecified; J44.9 Chronic obstructive pulmonary disease, unspecified; E11.65 Type 2 diabetes mellitus with hyperglycemia; M25.551 Pain in right hip | CPT/HCPCS: 83036 ==

== ENCOUNTER 2024-11-02 06:52 | Outpatient (REF) | payer OTHER, SELFPAY ==
--- NOTE | ~2024-11-02 | XR_ITS ---
CLINICAL HISTORY: M25.551 - Pain in right hip 2 view, pelvis and right hip Comparison: None Findings: The bones are intact. No significant arthritic change. The soft tissues are unremarkable. IMPRESSION: No acute findings. No more than mild joint space loss. This document has been electronically signed by: Marcia Elliott MD on 11/03/2024 05:04:51
[2024-11-02 07:16] LABS: MANUAL DIFF FLAG NO
[2024-11-02 07:39] LABS: Estimated Average Glucose 103 mg/dL; Hemoglobin A1C 129.3086 umol/L; Hemoglobin A1c % 5.2 % (<6.0); Total Hemoglobin (HGBA1C) 3876.7786 umol/L
[2024-11-02 07:42] LABS: Basophils Absolute Auto 0.1 X10*3/uL (0.0-0.2); Basophils Percent Auto 0.6 % (0-2); Eosinophils Absolute Auto 0.2 X10*3/uL (0.0-0.4); Eosinophils Percent Auto 1.8 % (0-4); Hematocrit 43.9 % (37.0-47.0); Hemoglobin 15.1 g/dl (12.0-16.0); Imm Gran Abs Auto 0.05 X10*3/uL (0.00-0.03); Imm Gran Pct Auto 0.5 % (0.0-0.4); Lymphocytes Absolute Auto 4.1 X10*3/uL (1.2-4.9); Lymphocytes Percent Auto 40.2 % (20-40); Mean Corpuscular HGB Conc 34.4 g/dl (31.0-35.0); Mean Corpuscular Hemoglobin 31.3 pg (27.0-33.0); Mean Corpuscular Volume 91.1 fL (80.0-98.0); Monocytes Absolute Auto 0.8 X10*3/uL (0.1-1.2); Monocytes Percent Auto 7.8 % (2-11); Neutrophils Absolute Auto 4.9 x10*3/uL (2.0-8.3); Neutrophils Percent Auto 49.1 % (45-73); Platelet Count 367 X10*3/uL (160-400); Red Blood Count 4.82 X10*6/uL (4.20-5.50); Red Cell Distribution Width 13.6 % (11.0-16.0); White Blood Count 10.1 X10*3/uL (4.8-10.8)
[2024-11-02 08:08] LABS: Alanine Aminotransferase 11 U/L (0-31); Alkaline Phosphatase 100 U/L (39-117); Anion Gap 14 (12-20); Aspartate Amino Transferase 16 U/L (5-31); Bilirubin Total 0.3 mg/dL (0.0-1.0); Blood Urea Nitrogen 13 mg/dL (9-16); Calcium 9.2 mg/dL (8.4-10.2); Carbon Dioxide 25 mmol/L (22-29); Chloride 108 mmol/L (96-108); Cholesterol 212 mg/dL (<200); Estimated Glomerular Filt Rate > 60; Glucose Random 99 mg/dL (60-115); HDL Cholesterol 32 mg/dL (>40); LDL Cholesterol Calculated 122 mg/dL (<100); Potassium 4.5 mmol/L (3.3-5.1); Sodium 142 mmol/L (135-145); Total Protein 7.8 g/dL (6.5-8.0); Triglycerides 290 mg/dL (<150)
== END 2024-11-02 06:53 | disposition home or self-care (01) ==
LOC: HO.XRAY 06:52
PROVIDERS: Absent Provider Internal Medicine; PCP Internal Medicine
DX: M25.551 Pain in right hip (principal); E11.65 Type 2 diabetes mellitus with hyperglycemia; E78.00 Pure hypercholesterolemia, unspecified
CPT/HCPCS: 36415; 73502; 80053; 80061; 83036; 85025

== ENCOUNTER → 2024-11-02 07:17 | Outpatient (BNV) | payer OTHER, SELFPAY | PROVIDERS: Absent Provider Internal Medicine; PCP Internal Medicine; Visit Provider Radiology Diagnostic Radiology | DX: M25.551 Pain in right hip (principal) | CPT/HCPCS: 73502 ==

== ENCOUNTER 2024-11-17 08:12 | Outpatient (AMB) | payer OTHER, SELFPAY ==
--- NOTE | 2024-11-17 08:12 | MHC.PC.OV ---
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 Accompanied by: Self / Same As Patient Allergies lisinopril Adverse Reaction (Intermediate, Verified 11/17/24 08:14) cough Medication List - Last Reconciled 11/17/24 by Annika Rutherford PA-C albuterol sulfate 90 mcg/actuation 2 puffs inhalation Q6H PRN aspirin 325 mg PO BID benzonatate 100 mg PO BID PRN blood pressure monitor (Blood Pressure Kit) As directed budesonide-formoterol 160-4.5 mcg/actuation (Symbicort) 2 puffs inhalation BID bupropion HCl SR 200 mg PO BID esomeprazole magnesium 20 mg PO DAILY fluconazole 150 mg PO Q3D 2 doses ondansetron 4 mg PO Q8H rosuvastatin 5 mg PO DAILY semaglutide (Ozempic) 0.25 mg (0.368 mL) subcut QWEEK tiotropium bromide 2.5 mcg/actuation (Spiriva Respimat) 2 puffs inhalation BEDTIME umeclidinium 62.5 mcg/actuation (Incruse Ellipta) 1 inh inhalation BEDTIME Tobacco use date assessed: 11/17/24 Dental Screening Dental Screen Date: 11/17/24 Did you have a dental visit in the last 12 months?: Yes Did you have a dental problem in the last 6 months where you did not have access to dental care?: No Was dental information given to patient?: Patient has dentist HPI f/u DM HPI Details 59-year-old obese female smoker with diabetes mellitus, hypercholesterolemia, hypertension, COPD, GERD and a generalized anxiety disorder last seen 07/2024 presenting via telehealth for follow up on diabetes and recent COVID-19 diagnosis. Patient tells us today 1 of her coworkers tested positive for COVID and she began feeling sick on Thursday. She started with a headache and cough as well as feeling weak on Thursday and tested positive for COVID on Thursday with an at-home test. She has been out of work since and still having fatigue, cough, nausea and weakness. She does have a history of COPD but feels her breathing is well managed at this time. FOR[facility]LY [facility], [facility] Medical History (Updated 11/17/24 @ 08:36 by Annika Rutherford PA-C) Groin abscess Alcohol abuse Type 2 diabetes mellitus with hyperglycemia COPD (chronic obstructive pulmonary disease) Hypercholesterolemia Hypertension GERD (gastroesophageal reflux disease) Surgical History History of back surgery Ventral hernia History of appendectomy Family History (Updated 04/15/24 @ 13:39 by Joycelyn Carney MD) Father CVA (cerebral vascular accident) Diabetes mellitus Hypertension Mother Diabetes mellitus Hypertension CVD (cardiovascular disease) Myocardial infarction Brother No problems noted. Sister CVD (cardiovascular disease) Skin cancer Lung cancer Social History (Updated 04/15/24 @ 13:40 by Joycelyn Carney MD) Housing: House Alcohol intake: former Comment: stopped 11/2022 Patient Tobacco Use Status: Current everyday Tobacco user Tobacco use type: Cigarette Cigarettes Per Day: 3 Years Smoked: 11 years old start Packs per year/per ci.00 e-Cigarette/Vaping Use: Never Used Second Hand Smoke Exposure: Yes service: No Current occupational status: employed Sexual orientation: Straight/Heterosexual Gender identity: Female Cognitive needs: No Hearing needs: No Vision needs: Yes Questionnaire PHQ-9 Over the last 2 weeks, how often have you been bothered by any of the following problems? 1. Little interest or pleasure in doing things: not at all 2. Feeling down, depressed, or hopeless: not at all 3. Trouble falling or staying asleep, or sleeping too much: not at all 4. Feeling tired or having little energy: not at all 5. Poor appetite or overeating: not at all 6. Feeling bad about yourself - or that you are a failure or have let yourself or your family down: not at all 7. Trouble concentrating on things, such as reading the newspaper or watching television: not at all 8. Moving or speaking so slowly that other people could have noticed. Or the opposite - being so fidgety or restless that you have been moving around a lot more than usual: not at all 9. Thoughts that you would be better off or of hurting yourself in some way: not at all Total score: 0 Depression Screening Interpretation: Negative Depression Screening Done: Yes Source: Developed by Drs. Tab Hodgson, Nighat Hernandez, Rich Camp and colleagues, with an educational jose from [employer]. Thrive Questionnaire Date Thrive assessed: 11/17/24 I am a: Patient What is your living situation today?: I have a steady place to live Within the past 12 months, did the food you bought not last and you didn't have the money to get more?: Never true Within the past 12 months, did you worry whether your food would run out before you got money to buy more?: Never true Do you have trouble paying for medicines?: No Do you have trouble getting transportation to medical appointments?: No Do you have trouble paying your heating and electricity bill?: No Do you have trouble taking care of your child, family member or friend?: No Do you have trouble with day-to-day activities such as bathing, preparing meals, shopping, managing finances, etc.?: No Are you currently unemployed and looking for a job?: No Are you interested in more education?: No Please select the resources that you would like help with: None Currently or been in a relationship where the following occur: No concerns reported THRIVE Score: 0 AUDIT C Alcohol Use Questionnaire (AUDIT-C) 1. How often do you have a drink containing alcohol?: Never 3. How often do you have six or more drinks on one occasion?: Never Total Score: 0 MARS-7 AMB Questionnaire MARS-7 Date MARS - 7 assessed: 11/17/24 Feeling nervous, anxious, or on edge: 0 = Not at all Not being able to stop or control worryin = Not at all Worrying too much about different things: 0 = Not at all Trouble relaxin = Not at all Being so restless that it is hard to sit still: 0 = Not at all Becoming easily annoyed or irritable: 0 = Not at all Feeling afraid as if something awful might happen: 0 = Not at all Total MARS-7 score (0-4 normal; 5-9 mild; 10-14 moderate; 15-21 severe): 0 Source: Developed by Drs. Tab Hodgson, Nighat Hernandez, Rich Camp and colleagues, with an educational jose from [employer]. Review of Systems Const Reports body aches, Denies chills, Reports fever(s), Reports headache(s) and Denies poor appetite Eyes Reports no additional complaints ENT Denies dizziness and Reports headache(s) Card Denies chest pain, Reports lightheadedness and Denies dyspnea Resp Reports cough, Denies hemoptysis, Denies excessive phlegm production and Denies dyspnea GI Denies abdominal pain, Reports nausea and Denies vomiting Reports no additional complaints Musc Reports no additional complaints and Denies abnormal gait Skin/Breast Reports system reviewed and no additional complaints, except as documented Neuro Denies abnormal gait, Denies dizziness and Reports headache(s) Psych Reports no additional complaints Physical exam (Primary Care) Vital Signs: Physical exam not performed due to nature of telehealth visit Tobacco/Smoking Status: Tobacco use Status Tobacco use date assessed 11/17/24 11/17/24 08:15 Patient Tobacco Use Status Current everyday Tobacco 11/17/24 08:15 Tobacco use type Cigarette 11/17/24 08:15 e-Cigarette/Vaping Use Never Used 11/17/24 08:15 PHQ-9: PHQ-9 Score PHQ-9: Total score 0 11/17/24 08:15 Depression Screening Interpretation: Negative Thrive Assessment: Date of Thrive Assessment Date Thrive assessed 11/17/24 11/17/24 08:15 Currently or been in a relationship where the following occur: No concerns reported Telehealth Telehealth Telehealth Platform: Telephone Location of provider rendering services: practice address Location of patient: address on file Patient Identification confirmed using: Name, : Yes Telehealth method: voice only Patient verbally consented to treatment: Yes Patient verbally consented to billing insurance company: Yes Patient informed of any privacy concerns related to visit: Yes Coding Level of Care Code Tele Est Pt Level 3 (53320) Diagnoses COVID-19 U07.1 GERD (gastroesophageal reflux disease) K21.9 Type 2 diabetes mellitus with hyperglycemia E11.65 Hypercholesterolemia E78.00 COPD (chronic obstructive pulmonary disease) J44.9 Assessment & Plan Assessment & Plan (1) COVID-19: Code(s): U07.1 - COVID-19 Category: Medical Plan: Patient testing positive for COVID-19 on Thursday with at home test. At this time she is out of the window for Paxlovid as her symptoms began on Thursday. Advised on conservative measures with [id number] cough and cold medications advised to avoid products containing NSAIDs as she is on daily aspirin. Also send prescription for benzonatate for dry cough and Zofran for nausea. Discussed with patient due to her COPD she should monitor symptoms very closely and reach out to the office or go to ED if she has difficulty breathing. (2) GERD (gastroesophageal reflux disease): Code(s): K21.9 - Gastro-esophageal reflux disease without esophagitis Category: Medical Plan: Avoid trigger foods such as citrus, tomato products, soda, caffeine, spicy foods and other foods that may be irritating to your stomach. Avoid laying flat 3-4 hours after eating and elevate the head of the bed 30 degrees to prevent acid from moving into the esophagus. (3) Type 2 diabetes mellitus with hyperglycemia: Code(s): E11.65 - Type 2 diabetes mellitus with hyperglycemia Category: Medical Plan: Decrease the amount of carbohydrates such as pasta, bread, rice, and potatoes and limit the amount of sweets. Although fruits are generally healthy they should be eaten in moderation as they are still high in sugar. Hemoglobin A1c goal of less of 7%. Presently only on Ozempic 0.25 mg states she is doing well on this medication and A1c has improved to 5.2%. She feels generally well on this medication as no side effects at this time and states she has been losing good amount weight as well. We will follow up in 3 months for repeat A1c and weight check (4) Hypercholesterolemia: Code(s): E78.00 - Pure hypercholesterolemia, unspecified Category: Medical Plan: Avoid foods that are high in cholesterol such as red meat, fried foods, eggs and baked goods. Triglyceride goal of less than 150 and LDL goal of less than 100. Continue on rosuvastatin 5 mg. Patient was provided with packet on cholesterol rich foods we will repeat cholesterol in 3 months and can consider increasing rosuvastatin to 10 mg (5) COPD (chronic obstructive pulmonary disease): Code(s): J44.9 - Chronic obstructive pulmonary disease, unspecified Category: Medical Plan: Patient currently on inhalers for COPD management. With a recent COVID-19 infection she feels her breathing has been doing well. Advised patient to reach out to the office if she begins having difficulty breathing or worsening shortness of breath as she may need steroids or to be seen in the ED Plan This note was constructed using voice recognition software. While every effort has been made to ensure accuracy and technical support professional, still areas may have been included sometimes these areas may affect the content or meeting of the given symptoms. Total time spent caring for the patient today was 20 minutes. This includes time spent before the visit reviewing the chart, time spent during the visit, and time spent after the visit and documentation. Orders: Orders Lipid Panel 3 Months E78.00 - Pure hypercholesterolemia, unspecified Medications: New ondansetron 4 mg PO Q8H 14 tabs 0RF benzonatate 100 mg PO BID PRN 20 caps 0RF cough
--- OUTSIDE RECORDS SUMMARY | 2024-11-17 11:03 | XMS_ITS | Clinical Summary ---
Author Organization [facility] Address [address] [place] [address] Care Team Providers Care Animal Husbandry Teacher Name Role Phone Ethan Mayer Primary Care Provider Social History Tobacco Use Types Packs/Day Years Used Date Smoking Tobacco: Never Assessed Sex and Gender Information Value Date Recorded Sex Assigned at Not on file Gender Identity Not on file Sexual Orientation Not on file Plan of Treatment Health Maintenance Due Date Last Done Comments Breast Cancer Screening 1965 DTaP,Tdap,and Td Vaccines (1 - Tdap) 1982 Cervical Cancer Screening: P ap Smear 1984 Zoster Vaccines (1 of 2) 2013 COVID-19 Vaccine ( - 2023-2 5 season) 2024 Influenza Vaccine (#1) 2024 RSV Immunization Patients 60 + Years Old (1 - 1-dose 75+ series) 2038 HIB Vaccines Aged Out No longer eligi ble based on patient's age to complete this topic HPV Vaccines Aged Out No longer eligi ble based on patient's age to complete this topic Hepatitis A Vaccines Aged Out No long er eligible based on patient's age to complete this topic Hepatitis B Vaccines Aged Out No long er eligible based on patient's age to complete this topic IPV Vaccines Aged Out No longer eligi ble based on patient's age to complete this topic MMR Vaccines Aged Out No longer eligi ble based on patient's age to complete this topic Meningococcal ACWY Vaccine Aged Out N o longer eligible based on patient's age to complete this topic Pneumococcal Vaccine: Pediat rics (0 to 5 Years) and At-Risk Patients (6 to 64 Years) Aged Out No longer eligible b ased on patient's age to complete this topic RSV Immunization Patients Un tiffany 20 months Aged Out No longer eligible b ased on patient's age to complete this topic Varicella Vaccines Aged Out No longer eligible based on patient's age to complete this topic Care Teams Animal Husbandry Teacher Relationship Specialty Start Date End Date Ethan Mayer PA [address] [place] [address] PCP - General Physician Bicycle Courier 09/10/20
== END 2024-11-17 08:26 | disposition home or self-care (01) ==
PROVIDERS: PCP Internal Medicine
DX: E11.65 Type 2 diabetes mellitus with hyperglycemia (principal); J44.9 Chronic obstructive pulmonary disease, unspecified; U07.1 COVID-19; K21.9 Gastro-esophageal reflux disease without esophagitis; E78.00 Pure hypercholesterolemia, unspecified